=== PATIENT | female | born 1955 | race Caucasian/White ===

== ENCOUNTER 2019-12-24 11:58 | Inpatient (IN) | payer MEDICARE, MEDICAID ==
--- OUTSIDE RECORDS SUMMARY | 2019-12-24 12:17 | XMS REPORT | Continuity of Care Document ---
:1955 External Reference #:[id number] Author Name NAYELI Gonzalez Address [address] [facility] [place] [address] Care Team Providers Name Role Phone Junie Charles M.D. 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 Onset: 10/29/2013 Urinary incontinence Vineet Carson M.D. Onset: 10/29/2013 Mood disorder Vineet Carson M.D. Onset: 10/29/2013 Disorder of oral soft tissues Vineet Carson M.D. Onset: 03/08/2014 Generalized convulsive epilepsy Vineet Carson M.D. Onset: 05/20/2014 Obsessive-compulsive disorder Junie Charles M.D. Onset: 08/06/2016 Moderate intellectual disability Junie Charles M.D. Onset: 08/06/2016 Mixed hyperlipidemia Junie Charles M.D. Onset: 08/06/2016 Uncomplicated moderate persistent asthma Junie Charles M.D. Onset: 02/08/2017 Thrombocytopenic disorder Junie Charles M.D. Onset: 08/11/2017 Hyperlipidemia Junie Charles M.D. Onset: 11/20/2018 Kidney disease Junie Charles M.D. Onset: 04/05/2019 Localized, primary osteoarthritis Junie Charles M.D. Onset: 11/22/2019 Social History Type Date Description Comments Sex Unknown Tobacco Use Start: Unknown Nonsmoker Smoking Status Reviewed: 12/22/19 Nonsmoker ETOH Use Denies alcohol use Tobacco Use Start: Unknown nonsmoker Exercise Type/Frequency Bikes daily 20 min stationary most days Allergies, Adverse Reactions, Alerts Active Allergies Reaction Severity Comments Date Amoxicillin hives 09/21/2013 Nickel dry skin 09/21/2013 Brass dry skin 09/21/2013 Ocusoft Lid Scrub bruised eyes 09/21/2013 Medications Active Medications SIG Qnty Indications Ordering Date Provider Medrol take dose pack as 1units J06.9 [facility], 12/22/2019 4mg TBPK directed M.D. Azithromycin take 2 tablets 6tabs J06.9 [facility], 12/22/2019 250mg (500 mg) day 1 M.D. Tablets then 250 mg x 4 days. Ipratropium inhale 1 four 1box J06.9 [facility], 12/22/2019 [place]/Albuterol times a day as M.D. Sulfate needed for cough/shortness 0.5-2.5(3)mg/3ML of breath Solution Nebulizer Set Up And use as needed for 1Unit J06.9 [facility], 2019 Tubing shortness of M.D. breath. lifetime use for asthma diagnosis j45.901 Diclofenac Sodium apply 4 gm to 300gm M17.11 [facility], 11/22/2019 1% right knee joint M.D. Gel twice a day as needed [facility] Acetaminophen take 2 tablets by 60tabs [facility], 11/05/2019 Extra Strength mouth 3 times a M.D. 500mg day as needed Tablets Aripiprazole Take 1 Tablet By 90tabs [facility], 09/30/2019 15mg Mouth Every Day M.D. Tablets Abilify 1 by mouth every F42 Tracie Bobby, 09/28/2019 15mg Tablets day CONSULTANT INTERN [facility] Calcium Take 1 Tablet By 180tabs [facility], 08/15/2019 600mg Mouth Twice A Day M.D. Tablets [facility] Super Cranberry Take 2 Capsules 60caps Antony F. 07/13/2019 Urinary Health Every Day Antione Saab 140-100mg Capsules Divalproex Sodium Take 1 Tablet By 90tabs Antony Fitch 06/20/2019 250mg Mouth Three Times Antione Saab Tablets DR A Day [facility] D3 Take 1 Capsule By 90caps [facility], 09/29/2018 5000Unit Mouth Every Day M.D. Capsules Bed Pads use three 3units [facility], 07/27/2018 Washable washable bed pads M.D. per month dx n39.3 last office visit 11/20/18 duration:lifetime Orthopedic Shoes dispense 1 pair 1Pair F71 Antony F. 07/27/2018 Antione Saab G40.309 Oxybutynin Chloride ER Take 1 Tablet By 90tabs R32 Junie Charles, 2017 15mg Mouth Every Day M.D. Tablets ER 24HR Pull Up Under Garment size xl - duration: 250units Junie Charles, 2017 lifetime - dx: M.D. r39.81 last appt 11/20/18 Abilify 1 by mouth every 90tabs F42 Tracie Rosales, 11/23/2017 15mg Tablets day CONSULTANT INTERN Nystatin use as directed 30units B37.3 Junie Charles, 11/09/2017 [id number]/GM Cream twice a day as M.D. needed to diaper area Cetirizine HCL 1 by mouth every 90tabs J30.9 Junie [place], 08/17/2016 10mg Tablets day as needed M.D. Mometasone Furoate apply to affected 45gm Junie [place], 10/30/2015 0.1% area twice a day M.D. Ointment Ra Vitamin D-3 take 1 capsule 90caps Junie [place], 03/03/2015 5000Unit daily M.D. Capsules Cetaphil topically to hands Unknown Cream and thighs qhs Prevident 5000 Plus bid Unknown 1.1% Cream Sertraline HCL Take 1 And 1/2 Tab 135tabs Tracie Bobby, 100mg Tablets By Mouth Every Day CONSULTANT INTERN Nitrofurantoin take 1 capsule by 90caps Tracie Bobby, Macrocrystal mouth once daily CONSULTANT INTERN 50mg Capsules Ra Col-Rite 1 by mouth every 15caps Tracie Bobby, 100mg Capsules other day CONSULTANT INTERN Cranberry Plus Vitamin C take two capsules 60units Antnoy F. SFTGL once daily Antione Saab History Medications Combivent Respimat use 1 puff 4 timesa A 4units R05 Junie [place], 2018 - day for M.D. 10/11/2019 20-100mcg/Act Aerosol COPD/medication is discontinued Immunizations CPT Code Status Date Vaccine Lot # [id number] Given 08/01/2019 Influenza Vac, [place], [place] [address] Given 05/22/2019 Pneumococcal Immunization [id number] Given 08/09/2017 Influenza Vac, Quadrivalent, Slit Virus, Im [id number] Given 08/06/2016 Influenza Vac, Quadrivalent, Slit Virus, Im [id number] Given 09/13/2015 Influenza Vac, [place] [id number] Given 09/13/2015 Pneumococcal Conjugate Vacc-13 05086 Given 08/24/2014 DO Not Use Split Influenza Virus Vaccine Vital Signs Date Vital Result Comment 12/22/2019 11:02am BP Systolic 120 mmHg BP Diastolic 88 mmHg Heart Rate 90 /min Body Temperature 98.1 F Respiratory Rate 18 /min O2 % BldC Oximetry 89 % Height 61.5 inches 5'1.50" Weight 226.00 lb BMI (Body Mass Index) 42.0 kg/m2 11/22/2019 9:59am BP Systolic 120 mmHg BP Diastolic 80 mmHg Heart Rate 86 /min Body Temperature 98.1 F Respiratory Rate 18 /min Height 61.5 inches 5'1.50" Weight 231.00 lb BMI (Body Mass Index) 42.9 kg/m2 Results Test Acquired Date Facility Test Result H/L Range Note Comprehensive 11/22/2019 [facility]) Sodium 146 mEq/L 134-149 Metabolic Prof Potassium 5.0 mEq/L 3.6-5.5 Chloride 101 mEq/L 94-112 Carbon Dioxide 31 mEq/L 21-32 Glucose 90 mg/dL 70-105 BUN 34 mg/dL High 6-26 1 Creatinine 1.2 mg/dL 0.6-1.4 BUN/Creat Ratio 28.3 CALC 8.0-36.0 Calcium 10.2 mg/dL 8.6-10.2 Total Protein 6.4 g/dL 6.4-8.3 Albumin 4.1 g/dL 3.8-5.5 Globulin 2.3 g/dL 2.0-4.8 A/G Ratio 1.8 CALC 0.6-2.3 Alk. Phosphatase 49 U/L 30-110 Alt (SGPT) 6 U/L Low 7-35 2 Ast (Sgot) 12 U/L 5-34 Total Bilirubin 0.4 mg/dL 0.2-1.3 GFR Non- 48 ml/min/1.73m^ Low >=60 GFR 58 ml/min/1.73m^ Low >=60 CBC Electronic [facility] 11/22/2019 [facility]) WBC 7.5 x10^3/UL 4.0- 10.0 RBC 4.40 x10^6/UL 3.93-6.00 HGB 13.2 g/dL 12.0-17.0 HCT 41 % 35-50 MCV 93.0 fL 80.0-95.0 MCH 30.0 pg 25.6-32.2 MCHC 32.3 g/dL 32.2-36.0 RDW-CV 13.0 % 11.6-14.4 PLT 125 x10^3/UL Low 163-400 3 MPV 12.8 fL High 9.4-12.4 Chandler# 4.51 x10^3/UL 1.56-6.13 Lymph# 1.93 x10^3/UL 1.18-3.74 Dickinson# 0.76 x10^3/UL 0.24-0.82 Eos # 0.2 x10^3/UL 0.0-0.5 Baso # 0.04 x10^3/UL 0.01-0.08 Chandler% 60.4 % 34.0-70.0 Lymph % 25.8 % 20.0-52.0 Dickinson% 10.2 % 5.0-12.0 Eos% 2.4 % 0.7-7.0 Baso% 0.5 % 0.1-1.2 Laboratory test 11/22/2019 [facility]) Free T4 0.91 ng/dL 0.75- 1.54 finding TSH 1.27 mIU/L 0.50-6.00 Lipid Profile 11/22/2019 [facility]) Cholesterol 242 mg/dL High 120-200 Triglycerides 260 mg/dL High 30-200 HDL Cholesterol 61 mg/dL 30-85 LDL (Calculated) 129 CALC 0-129 VLDL Cholesterol 52 mg/dL High 0-50 HDL Risk Factor 4.0 CALC 0.0-4.4 Laboratory test 11/22/2019 [facility] Valproic Acid 52.0 g/mL Normal 50-100 4 finding (Depakene) Ict Hemoccult 07/03/2019 [facility] Ict Hemoccult 06/09/19 Neg. (Fma) (607)- - (1) Ict Hemoccult-(2) 06/11/19 Neg. Ict-Hemoccult (3) 06/13/19 Neg. 1 consistent w/ previous results 2 consistent w/ previous results 3 RESULTS VERIFIED BY REPEAT ANALYSIS 4 FASTING [id number] 1 pour off tube with serum from rtt Procedures Date Code Description Status 02/01/2019 [id number] Mammogram Completed 12/23/2017 [id number] Mammogram Completed 09/26/2015 [id number] Mammogram Completed 09/25/2014 [id number] Mammogram Completed Medical Devices Description No Information Available Encounters Type Date Location Provider Dx Diagnosis Office Visit 11/22/2019 Main Office Junie Charles M.D. F42.9 Obsessive- compulsive 10:10a disorder, unspecified G40.309 Gen idiopathic epilepsy, not intractable, w/o stat epi N18.9 Chronic kidney disease, unspecified Z00.00 Encntr for general adult medical exam w/o abnormal findings M17.11 Unilateral primary osteoarthritis, right knee E78.2 Mixed hyperlipidemia Assessments Date Code Description Provider 12/22/2019 J06.9 Acute upper respiratory infection, unspecified Neris Olsen, NAYELI 11/22/2019 F42.9 Obsessive-compulsive disorder, unspecified Junie Charles M.D. 11/22/2019 G40.309 Generalized idiopathic epilepsy and epileptic Junie Charles M.D. syndromes, not intractable, without status epilepticus 11/22/2019 N18.9 Chronic kidney disease, unspecified Junie Charles M.D. 11/22/2019 Z00.00 Encounter for general adult medical examination Junie Charles M.D. without abnormal findings 11/22/2019 M17.11 Unilateral primary osteoarthritis, right knee Junie Charles M.D. 11/22/2019 E78.2 Mixed hyperlipidemia Junie Charles M.D. 07/03/2019 N18.9 Chronic kidney disease, unspecified Junie Charles M.D. 07/03/2019 R19.7 Diarrhea, unspecified Junie Charles M.D. Plan of Treatment Future Appointment(s):12/24/2019 10:30 am - Lorena Soto NP at Main Gmkqvy4005/22/2020 10:00 am - Junie Charles M.D. at Main Kvtmiv1712/22/2019 - Neris Olsen, PAJ06.9 Acute upper respiratory infection, unspecifiedNew Medication: Medrol 4 mg - take dose pack as directedAzithromycin 250 mg - take 2 tablets ( 500 mg) day 1 then 250 mg x 4 days.Ipratropium [place]/Albuterol Sulfate 0.5-2.5 (3) mg/3ML - inhale 1 four times a day as needed for cough/shortness of breathNebulizer Set Up And Tubing - use as needed for shortness of breath. lifetime use for asthma diagnosis j45.901New Xrays:Chest 2 Views, Ordered: 12/22Comments:Start steroid to help inflammation in the lungs Start antibiotic - AzithromycinStart nebulizer (4-6x/ day) or use Combivent inhaler- can get vials at the pharmacy and nebulizer through insurance at [employer] or can purchase at the pharmacy Check Chest X Ray See early next week to be sure feeling better ER for any trouble breathingAllComments:PCMHMedication Management Patient Understands medications he's taking? Yes Are there Barriers to Adherence? No Has the patient been asked about herbal supplements and therapies, and OTC meds? Yes Care Plan1. Patient has been queried about patient's goals/preferences and functional/lifestyle goals at relevant visits. Yes If relevant, describe: N/A2. Treatment goals as explained to the patient: above3. Are there barriers to meeting treatment goals ? No If Yes, please describe:4. Self-Management goals as described to the patient: Yes As always, we strongly encourage a healthy diet and making physical activity a part of your every day life. If you have questions about how or where to start, please contact the office. Functional Status Description No Information Available Mental Status Description No Information Available Referrals Description No Information Available
--- OUTSIDE RECORDS SUMMARY | 2019-12-24 12:17 | XMS REPORT | Continuity of Care Document ---
:1955 External Reference #:[id number] Author Name Junie Charles M.D. Address [address] [place] [address] Care Team Providers Name Role Phone Junie Charles M.D. 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 Problems Active Problems Provider Date Mental [...] Use Start: Unknown Nonsmoker Smoking Status Reviewed: 11/22/19 Nonsmoker ETOH Use Denies alcohol use Tobacco Use Start: Unknown nonsmoker Exercise Type/Frequency Bikes daily 20 min stationary most days Allergies, Adverse Reactions, Alerts Active Allergies Reaction Severity Comments Date Amoxicillin hives 09/21/2013 Nickel dry skin 09/21/2013 Brass dry skin 09/21/2013 Ocusoft Lid Scrub bruised eyes 09/21/2013 Medications Active Medications SIG Qnty Indications Ordering Date Provider Diclofenac Sodium apply 4 gm to 300gm M17.11 Junie Charles, 11/22/2019 1% Gel right knee joint M.D. twice a day as needed [facility] Acetaminophen take 2 tablets 60tabs Junie [place], 11/05/2019 Extra Strength by mouth 3 times M.D. 500mg a day as needed Tablets Aripiprazole Take 1 Tablet By 90tabs Junie Charles, 09/30/2019 15mg Tablets Mouth Every Day M.D. Abilify 1 by mouth every F42 Tracie Rosales, 09/28/2019 15mg Tablets day PLUG PASTER [facility] Calcium Take 1 Tablet By 180tabs Junie [place], 08/15/2019 600mg Tablets Mouth Twice A M.D. Day [facility] Super Cranberry Take 2 Capsules 60caps Antony F. 07/13/2019 Urinary Health Every Day Antione Saab 140-100mg Capsules Divalproex Sodium Take 1 Tablet By 90tabs Antonyrubina Fitch 06/20/2019 250mg Mouth Three Antione Saab Tablets DR Times A Day [facility] D3 Take 1 Capsule 90caps Junie Charles, 09/29/2018 5000Unit Capsules By Mouth Every M.D. Day Bed Pads use three 3units Junie Charles, 07/27/2018 Washable washable bed Antione pads per month dx n39.3 last office visit 11/20/18 duration:lifetim e Orthopedic Shoes dispense 1 pair 1Pair F71 Antony FRadha 07/27/2018 Antione Saab G40.309 Oxybutynin Chloride ER Take 1 Tablet By 90tabs R32 Junie Charles, 2017 15mg Mouth Every Day M.DRadha Tablets ER 24HR Pull Up Under Garment size xl - duration: 250units Junie Charles, 2017 lifetime - dx: ChuckDRadha r39.81 last appt 11/20/18 Abilify 1 by mouth every 90tabs F42 Tracie Rosales, 11/23/2017 15mg Tablets day PLUG PASTER Nystatin use as directed 30units B37.3 Junie Charles, 11/09/2017 [id number]/GM Cream twice a day as M.D. needed to diaper area Cetirizine HCL 1 by mouth every 90tabs J30.9 Junie Charles, 08/17/2016 10mg Tablets day as needed M.D. Mometasone Furoate apply to affected 45gm Junie Charles, 10/30/2015 0.1% area twice a day M.D. Ointment Ra Vitamin D-3 take 1 capsule 90caps Junie Charles, 03/03/2015 5000Unit daily M.D. Capsules Cetaphil topically to hands Unknown Cream and thighs qhs Prevident 5000 Plus bid Unknown 1.1% Cream Sertraline HCL Take 1 And 1/2 Tab 135tabs Tracie Bobby, 100mg Tablets By Mouth Every Day PLUG PASTER Nitrofurantoin take 1 capsule by 90caps Tracie Bobby, Macrocrystal mouth once daily PLUG PASTER 50mg Capsules Ra Col-Rite 1 by mouth every 15caps Tracie Bobby, 100mg Capsules other day PLUG PASTER Cranberry Plus Vitamin C take two capsules 60units Antony F. SFTGL once daily Antione Saab History Medications Combivent Respimat use 1 puff 4 timesa A 4units R05 Junie Charles, 2018 - day for M.D. 10/11/2019 20-100mcg/Act Aerosol COPD/medication is discontinued Immunizations CPT Code Status Date Vaccine Lot # 73739 Given 08/01/2019 Influenza Vac, [place], [place] [id number] Given 05/22/2019 Pneumococcal Immunization [id number] Given 08/09/2017 Influenza Vac, Quadrivalent, Slit Virus, Im [id number] Given 08/06/2016 Influenza Vac, Quadrivalent, Slit Virus, Im [id number] Given 09/13/2015 Influenza Vac, [place]riv[place], [place] [id number] Given 09/13/2015 Pneumococcal Conjugate Vacc-13 34414 Given 08/24/2014 DO Not Use Split Influenza Virus Vaccine Vital Signs Date Vital Result Comment 11/22/2019 9:59am BP Systolic 120 mmHg BP Diastolic 80 mmHg Heart Rate 86 /min Body Temperature 98.1 F Respiratory Rate 18 /min Height 61.5 inches 5'1.50" Weight 231.00 lb BMI (Body Mass Index) 42.9 kg/m2 06/15/2019 1:36pm BP Systolic 124 mmHg BP Diastolic 80 mmHg Heart Rate 86 /min Body Temperature 98.1 F Respiratory Rate 17 /min Height 61.5 inches 5'1.50" Weight 224.00 lb BMI (Body Mass Index) 41.6 kg/m2 Results Test Acquired Date Facility Test Result H/L Range Note Laboratory test 11/22/2019 [facility]) Free T4 <pending> 0.75- 1.54 finding TSH <pending> 0.5-5.0 Laboratory test 11/22/2019 [facility] Valproic Acid <pending> finding (Depakene) Ict Hemoccult ([facility]) 07/03/2019 [facility] Ict Hemoccult (1) 06/09/19 Neg. (607)- - Ict Hemoccult-(2) 06/11/19 Neg. Ict-Hemoccult (3) 06/13/19 Neg. Procedures Date Code Description Status 02/01/2019 [id number] Mammogram Completed 12/23/2017 [id number] Mammogram Completed 09/26/2015 [id number] Mammogram Completed 09/25/2014 [id number] Mammogram Completed Medical Devices Description No Information Available Encounters Type Date Location Provider Dx Diagnosis Office Visit 06/15/2019 Main Office ALEXANDRA Wooten R22.41 Localized swelling, 1:30p mass and lump, right lower limb Assessments Date Code Description Provider 11/22/2019 F42.9 Obsessive-compulsive disorder, unspecified Junie Charles M.D. 11/22/2019 G40.309 Generalized idiopathic epilepsy and epileptic Junie Charles M.D. syndromes, not intractable, without status epilepticus 11/22/2019 N18.9 Chronic kidney disease, unspecified Junie Charles M.D. 11/22/2019 Z00.00 Encounter for general adult medical examination Junie Charles M.D. without abnormal findings 11/22/2019 M17.11 Unilateral primary osteoarthritis, right knee Junie Charles M.D. 07/03/2019 N18.9 Chronic kidney disease, unspecified Junie Charles M.D. 07/03/2019 R19.7 Diarrhea, unspecified Junie Charles M.D. 06/15/2019 R22.41 Localized swelling, mass and lump, right lower Tracie Rosales, PLUG PASTER limb Plan of Treatment 11/22/2019 - Junie Charles M.D.F42.9 Obsessive-compulsive disorder, unspecifiedComments:stable on regimenFollow up:6moG40.309 Generalized idiopathic epilepsy and epileptic syndromes, not intractable, without status epilepticusComments:stable on vbtxuzkP44.9 Chronic kidney disease, unspecifiedComments:avoid NSAIDS by mouth to minimize kidney kzzldmkY87.00 Encounter for general adult medical examination without abnormal findingsComments:Encourage an active and healthy lifestyle with proper eating habits including fruits, vegetables, 6-8 glasses of water a day and monitoring portion size. Recommend 30 minutes of daily physical activityincluding walking, aerobic exercise, sports, yoga or dance. Any activity is better than no activity.Recommend routine eye and dental exams. Next physical is due in 1-2 years. Recommend annual influenza yftjlbjmkizO54.11 Unilateral primary osteoarthritis, right kneeNew Medication:Diclofenac Sodium 1 % - apply 4 gm to right knee joint twice a day as neededComments:Can use heat or ice on area 15 minutes on/off. Use diclofenac gel 2x a day as needed, and acetaminophen 3x a day. Stretching exercises are recommended twice a day. Call if symptoms are worseningAllComments:Medication Management Patient Understands medications she' s taking? Yes No Are there Barriers to Adherence? Yes No Has the patient been asked about herbal supplements and therapies, and OTC meds? Yes No Functional Status Description No Information Available Mental Status Description No Information Available Referrals Description No Information Available
--- NOTE | 2019-12-24 13:17 | ED ---
Respiratory - HPI Summary HPI Summary: The patient is a 64 y/o F presenting to [facility] accompanied by family with a cc of hypoxia today. She visited her PCPs office on 12/22/2019 for a few days of URI-like symptoms and was placed on Prednisone and Azithromycin. At bedtime that night, she was observed to have an O2 sat of 89% on RA. Today, she was seen by the FLOUR BROKER at her PCPs office for a follow-up, and she was 74-78% O2 on RA and was administered a nebulizer treatment with recommendation to come to the ED. She denies lower extremity edema, fever, or worsening cough. She does not feel short of breath and has not had observable labored breathing or wheezing. Patient 93% O2 sat on 4L in the room. PMHx: epilepsy, HTN. Nonsmoker, no EtOH, no substance use. Medications reviewed. Allergies noted. - History of Current Complaint Chief Complaint: EDUpperRespComplaint Stated Complaint: LOW OXYGEN SATURATION PER CAREGIVER Time Seen by Provider: 12/24/19 12:57 Hx Obtained From: Patient, Family/[employer] Secretary Onset/Duration: Gradual Onset, Lasting Days, Still Present Initial Severity: Moderate Current Severity: Moderate Pain Intensity: 0 Sputum Amount: None Aggravating Factor(s): URI Alleviating Factor(s): Neb. Bronchodilators (Frequency Of Use) Associated Signs and Symptoms: Negative - Allergy/Home Medications Allergies/Adverse Reactions: Allergies Allergy/AdvReac Type Severity Reaction Status Date / Time amoxicillin Allergy Rash Verified 12/24/19 12:03 Home Medications: Home Medications Calcium Carbonate [Calcium] 600 mg PO BID 12/24/19 [History Confirmed 12/24/19] Cetirizine* [ZyrTEC 10 MG TAB*] 10 mg PO DAILY 12/24/19 [History Confirmed 12/24] Cranberry 400 mg PO BID 12/24/19 [History Confirmed 12/24/19] Divalproex DR TAB(*) [Depakote DR TAB(*)] 150 mg PO TID 12/24/19 [History Confirmed 12/24/19] Erythromycin OPTH OINT* [Erythromycin 0.5% OPTH OINT*] 1 applic BOTH EYES BEDTIME 12/24/19 [History Confirmed 12/24/19] Nitrofurantoin Macrocrystal [Nitrofurantoin Macrocryst] 50 mg PO DAILY 12/24/19 [History Confirmed 12/24/19] Oxybutynin TAB* [Ditropan TAB*] 15 mg PO DAILY 12/24/19 [History Confirmed 12/24] Pazeo 0.7% Opthalmic Soln 1 drop BOTH EYES QAM 12/24/19 [History Confirmed 12/24] Sertraline* [Zoloft*] 150 mg PO DAILY 12/24/19 [History Confirmed 12/24/19] PMH/Surg Hx/FS Hx/Imm Hx Endocrine/Hematology History: Denies: Hx Diabetes Cardiovascular History: Reports: Hx Hypertension Sensory History: Reports: Hx Contacts or Glasses Opthamlomology History: Reports: Hx Contacts or Glasses Neurological History: Reports: Hx Seizures - Cancer History Hx Chemotherapy: No Hx Radiation Therapy: No - Surgical History Surgical History: Yes Surgery Procedure, Year, and Place: HYSTERECTOMY Infectious Disease History: No Infectious Disease History: Denies: Traveled Outside the [place] in Last 30 Days - Family History Known Family History: Negative: Blood Disorder - Social History Alcohol Use: None Hx Substance Use: No Substance Use Type: Reports: None Hx Tobacco Use: No Smoking Status (MU): Never Smoked Tobacco Review of Systems Negative: Fever Positive: Other - hypoxic. Negative: Shortness Of Breath - no observable wheezing, labored breathing, Cough Negative: Edema All Other Systems Reviewed And Are Negative: Yes Physical Exam - Summary Physical Exam Summary: Constitutional: Well-developed, Well-nourished, Alert. (-) Distressed Skin: Warm, Dry HENT: Normocephalic; Atraumatic Eyes: Conjunctiva normal Neck: Musculoskeletal ROM normal neck. (-) JVD, (-) Stridor, (-) Nuchal rigidity Cardio: Rhythm regular, rate normal, Heart sounds normal; Intact distal pulses; Radial pulses are 2+ and symmetric. (-) Murmur Pulmonary/Chest wall: Tachypnea, (+) Bilateral crackles, (-) Respiratory distress, (-) Wheezes, (-) Rales Abd: Soft, (-) tenderness, (-) Distension, (-) Guarding, (-) Rebound Musculoskeletal: (-) Edema Lymph: (-) Cervical adenopathy Neuro: Alert, Oriented x3 Psych: Mood and affect Normal Triage Information Reviewed: Yes Vital Signs On Initial Exam: Initial Vitals Temp Pulse Resp BP Pulse Ox 97.7 F 108 19 141/105 88 12/24/19 12:00 12/24/19 12:00 12/24/19 12:00 12/24/19 12:00 12/24/19 12:00 Vital Signs Reviewed: Yes Procedures - Sedation Patient Received Moderate/Deep Sedation with Procedure: No Diagnostics - Vital Signs Vital Signs Temp Pulse Resp BP Pulse Ox 12/24/19 12:35 97 22 90 12/24/19 12:00 97.7 F 108 19 141/105 88 - Laboratory Result Diagrams: 12/24/19 13:32 12/24/19 12:45 Lab Statement: Any lab studies that have been ordered have been reviewed, and results considered in the medical decision making process. - Radiology CXR Radiology Interpretation Completed By: Radiologist Summary of Radiographic Findings: Impression: Perihilar predominant airspace opacification with cardiomegaly. This is most suggestive of mild pulmonary edema. ED physician has reviewed this report. - EKG 1335 Cardiac Rate: NL - 99 BPM EKG Rhythm: Sinus Rhythm EKG Comparison: Other - no prior for comparison Summary of EKG Findings: An EKG at 1335 reveals normal sinus rhythm at rate of 99 BPM. RBBB. No STEMI. No prior for comparison. ED physician has reviewed and interpreted this EKG. Re-Evaluation - Re-Evaluation First Eval Re-Evaluation Time: 14:30 Comment: Discussed results and plan for admission, patient and family agreeable with plan Disposition - Course Course Of Treatment: 64 y/o F w hx developmental delay p/w URI like symptoms found to be hypoxic. - VS notable for room air sat 74%, placed on 4 L NC. - XR w pulm edema, BNP 100, trop neg. EKG w/o e/o acute ischemia. - CTA chest w pulm edema. Admit to hospitalist. - Diagnoses Provider Diagnoses: Pulmonary edema, Hypoxia, SOB (shortness of breath) - Physician Notifications Discussed Care Of Patient With: Jayy Greenwood - hospitalist Time Discussed With Above Provider: 14:25 Instructed by Provider To: Other - I discussed the patients case with Dr. Greenwood , who accepts the patient for admission pending Chest/Thorax CTA. Discharge ED - Sign-Out/Discharge Documenting (check all that apply): Patient Departure - Patient accepted for admission by Dr. Greenwood. - Discharge Plan Condition: Stable Disposition: ADMITTED TO [facility] - Billing Disposition and Condition Condition: STABLE Disposition: Admitted to [facility] - Attestation Statements Document Initiated by Estuardo: Yes Documenting Scribe: Amna Reyes Provider For Whom Estuardo is Documenting (Include Credential): Dr. Benjamin Haley MD Scribe Attestation: IAmna scribed for Dr. Benjamin Haley MD on 12/24/19 at 1939. Scribe Documentation Reviewed: Yes Provider Attestation: The documentation as recorded by the Amna garcia accurately reflects the service I personally performed and the decisions made by me, Dr. Benjamin Haley MD Status of Scribe Document: Viewed
[2019-12-24 13:22] LABS: Albumin 4.1 g/dL (3.2-5.2); Potassium 4.5 mmol/L (3.5-5.0); Total Bilirubin 0.3 mg/dL (0.2-1.0)
[2019-12-24 13:28] LABS: Albumin/Globulin Ratio 1.5 (1-3); BUN/Creatinine Ratio 27.5 (8-20); EGFR African American 46.3 (>60); EGFR Non-African American 38.3 (>60); Globulin 2.8 g/dL (2-4); Total Protein 6.9 g/dL (6.4-8.9)
[2019-12-24 13:46] LABS: Hematocrit 39 % (35-47); Hemoglobin 12.6 g/dL (12.0-16.0); Mean Corpuscular HGB Conc 33 g/dL (31-36); Mean Corpuscular Hemoglobin 30 pg (27-31); Mean Corpuscular Volume 90 fL (80-97); Mean Platelet Volume 9.3 fL (7.4-10.4); Platelet Count 180 10^3/uL (150-450); Red Blood Count 4.28 10^6 /uL (3.70-4.87); Red Cell Distribution Width 14 % (10-15); White Blood Count 11.1 10^3/uL (3.5-10.8)
[2019-12-24] MEDS ORDERED: Iodixanol* (CONTRAST) 320 MG/ML 100 ML SDV IV ONE (14:46)
[2019-12-24 15:17] LABS: ABS Basophils 0.1 10^3/ul (0-0.2); ABS Eosinophils 0.1 10^3/ul (0-0.6); ABS Lymphocytes 2.7 10^3/ul (1.0-4.8); ABS Monocytes 0.8 10^3/ul (0-0.8); ABS Neutrophils 7.5 10^3/ul (1.5-7.7); Eosinophil % 0.6 %; Lymphocyte % 24.1 %
[2019-12-24] MEDS: DOXYcycline IV* 100 MG in NS 0.9% 250 ML* 250 ML IVPB SCH (18:09)
[2019-12-24] MEDS: cefTRIAXone(*) 1 GM in NS 0.9% 50 ML* 50 ML IVPB SCH (18:09)
[2019-12-24] MEDS: Enoxaparin(*) 40 MG/0.4 ML SYR SUBCUT SCH (18:14)
[2019-12-24 19:10] LABS: Influenza A Molecular Negative (Negative); Influenza B Molecular Negative (Negative)
[2019-12-24] MEDS: Divalproex DR TAB(*) 250 MG PO SCH (22:28)
[2019-12-24] MEDS: Erythromycin OPTH OINT* APPLIC OINT BOTH EYES SCH (22:29)
[2019-12-25 06:56] LABS: Hematocrit 37 % (35-47); Hemoglobin 12.1 g/dL (12.0-16.0); Mean Corpuscular HGB Conc 33 g/dL (31-36); Mean Corpuscular Hemoglobin 31 pg (27-31); Mean Corpuscular Volume 93 fL (80-97); Mean Platelet Volume 8.8 fL (7.4-10.4); Platelet Count 140 10^3/uL (150-450); Red Blood Count 3.97 10^6 /uL (3.70-4.87); Red Cell Distribution Width 14 % (10-15); White Blood Count 8.7 10^3/uL (3.5-10.8)
[2019-12-25 07:01] LABS: Calcium 9.2 mg/dL (8.6-10.3); Potassium 4.9 mmol/L (3.5-5.0)
[2019-12-25 07:07] LABS: BUN/Creatinine Ratio 28.7 (8-20); C Reactive Protein 12.07 mg/L (<8.01); EGFR African American 53.4 (>60); EGFR Non-African American 44.1 (>60)
[2019-12-25] MEDS: DOXYcycline IV* 100 MG in NS 0.9% 250 ML* 250 ML IVPB SCH ×2 (07:07→18:11)
[2019-12-25 08:58] LABS: ABS Eosinophils 0.1 10^3/ul (0-0.6); ABS Monocytes 0.9 10^3/ul (0-0.8); ABS Neutrophils 5.6 10^3/ul (1.5-7.7); Eosinophil % 1.6 %; Lymphocyte % 22.7 %; Nucleated Red Blood Cells % 0.1
[2019-12-25] MEDS: Divalproex DR TAB(*) 250 MG PO SCH ×3 (10:13→22:26)
[2019-12-25] MEDS: Oxybutynin XL TAB* 5 MG PO SCH (10:13)
[2019-12-25] MEDS: Sertraline* 50 MG TAB PO SCH (10:14)
[2019-12-25] MEDS: OLOPATADINE 0.7% BOTH EYES SCH (10:19)
--- NOTE | 2019-12-25 10:33 | PN ---
Subjective Date of Service: 12/25/19 Interval History: Patient overall has no complaints. She has a productive cough and she tells me she brings up phlegm at times. She states, "I hope I don't need surgery" and she is reassured. She tells me her breathing feels a little better than yesterday. She denies chest pain, abd pain, fever/chills. Her primary customer care representative, her sister, tells me the productive cough started 12/21/19, but several days before this she had "cold like symptoms" of runny nose and very intermittent cough. She went to PCP over the weekend and nebulizers did not help, and was directed to the ED. Objective Active Medications: Divalproex Sodium (Depakote Dr Tab(*)) 250 mg PO TID [facility] Last Admin: 12/25/19 10:13 Dose: 250 mg Enoxaparin Sodium (Lovenox(*)) 40 mg SUBCUT Q24H [facility] Last Admin: 12/24/19 18:14 Dose: 40 mg Erythromycin (Erythromycin Opth Oint*) 1 applic BOTH EYES BEDTIME [facility] Last Admin: 12/24/19 22:29 Dose: 1 applic Doxycycline Hyclate 100 mg/ (Sodium Chloride) 250 mls @ 250 mls/hr IVPB Q12H [facility] Last Admin: 12/25/19 07:07 Dose: 250 mls/hr Ceftriaxone Sodium 1 gm/ (Sodium Chloride) 50 mls @ 100 mls/hr IVPB Q24H [facility] Last Admin: 12/24/19 18:09 Dose: 100 mls/hr Non-Formulary Medication (Pazeo 0.7% Opthalmic Soln) 1 drop BOTH EYES QAM [facility] Last Admin: 12/25/19 10:19 Dose: Not Given Oxybutynin Chloride (Ditropan Xl Tab*) 15 mg PO DAILY [facility] Last Admin: 12/25/19 10:13 Dose: 15 mg Sertraline HCl (Zoloft*) 150 mg PO DAILY [facility] Last Admin: 12/25/19 10:14 Dose: 150 mg Vital Signs - 8 hr 12/25/19 12/25/19 03:23 07:34 Temperature 97.9 F 97.8 F Pulse Rate 85 88 Respiratory 20 24 Rate Blood Pressure 149/84 145/76 (mmHg) O2 Sat by Pulse 92 91 Oximetry Oxygen Devices in Use Now: Nasal Cannula Appearance: Elderly white female, sitting upright in chair, appearing comfortable and in NAD Eyes: No Scleral Icterus, - - PERRL Ears/Nose/Mouth/Throat: Mucous Membranes Moist Neck: Trachea Midline Respiratory: Symmetrical Chest Expansion and Respiratory Effort, - - poor depth of respirations due to patient effort it seems; crackles in bilateral bases; scant rhonchi diffusely anteriorly which sounds consistent with upper airway secretions Cardiovascular: NL Sounds; No Murmurs; No JVD, RRR Abdominal: - - abd soft, nontender, nondistended Extremities: No Edema, No Clubbing, Cyanosis Skin: No Rash or Ulcers Neurological: Alert and Oriented x 3 Result Diagrams: 12/25/19 06:43 12/25/19 06:43 Assess/Plan/Problems-Billing Assessment: 64 yo white female with PMHx intellectual delay, cardiomegaly, ?seizure disorder , overactive bladder, anxiety/depression presents with shortness of breath. - Patient Problems (1) Acute respiratory failure with hypoxia Current Visit: Yes Status: Acute Code(s): J96.01 - ACUTE RESPIRATORY FAILURE WITH HYPOXIA SNOMED Code(s): 85441596 Comment: -etiology unclear at this time, but my leading differential dx is pneumonia considering the presenting clinical picture of leukocytosis and URI sxs leading up to presentation -with the CXR demonstrating some concerning features of pulmonary edema, I do have concern for possible underlying HF, additionally given hx of cardiomegaly -echo demonstrates diastolic HF but I would be hesitant to diurese at this time as patient is more likely dry in setting of infection -continue empiric abx: doxy and ceftriaxone -leukocytosis is resolved; patient is afebrile -on 4L oxygen, will wean as tolerated -if not improving after 48 hrs IV abx then should consider diuresis (2) Frequent PVCs Current Visit: Yes Status: Acute Code(s): I49.3 - VENTRICULAR PREMATURE DEPOLARIZATION SNOMED Code(s): 30397728 Comment: -frequent long runs of PVCs, with runs as long as 8 beats to 20 beats -not Vtach as patient is not tachycardic during these runs, rates in 90s -K is >4, Mg is low - replacing -patient asymtompatic during these runs, but patient is poor historian due to intellectual delay -continue tele (3) Overactive bladder Current Visit: Yes Status: Acute Code(s): N32.81 - OVERACTIVE BLADDER SNOMED Code(s): 043965050 Comment: -continue oxybutynin (4) Anxiety and depression Current Visit: Yes Status: Acute Code(s): F41.9 - ANXIETY DISORDER, UNSPECIFIED; F32.9 - MAJOR DEPRESSIVE DISORDER, SINGLE EPISODE, UNSPECIFIED SNOMED Code(s): 007865589 Comment: -continue zoloft (5) Intellectual delay Current Visit: Yes Status: Acute Code(s): F81.9 - DEVELOPMENTAL DISORDER OF SCHOLASTIC SKILLS, UNSPECIFIED SNOMED Code(s): 798494492 Comment: -supportive care -appears patient takes depakote as a mood stabilizer as there is no documentation of seizure d/o (6) DVT prophylaxis Current Visit: Yes Status: Acute Code(s): Z29.9 - ENCOUNTER FOR PROPHYLACTIC MEASURES, UNSPECIFIED SNOMED Code(s): 048916027 Comment: -lovenox (7) Full code status Current Visit: Yes Status: Acute Code(s): Z78.9 - OTHER SPECIFIED HEALTH STATUS SNOMED Code(s): 548868544 Status and Disposition: pending further improvement
--- NOTE | 2019-12-25 10:47 | HP ---
CC: Dr. Junie Charles ADMISSION HISTORY AND PHYSICAL: DATE OF ADMISSION: 12/24/19 CHIEF COMPLAINT: Hypoxia. HISTORY OF PRESENT ILLNESS: Ms. Garcia is a 64-year-old woman with history of intellectual develop mental delay, who came to her primary care office approximately 24 hours prior to admission. Apparen tly, some respiratory complaints were noted and she had oxygen sat level that read 89%. She was sent home with prednisone and azithromycin and had a 24-hour recheck planned. When she came back to the office today she had an oxygen saturation 74% and was referred to the emergency department. The david ent is a poor historian due to her baseline mental status. She denies any cough or dyspnea. She steve es any history of heart failure or peripheral edema. The patient lives with her family for the last 10 plus years. PAST MEDICAL HISTORY: Include hypertension, epilepsy and a history of an "enlarged heart," overactiv e bladder. PAST SURGICAL HISTORY: Hysterectomy. MEDICATIONS ON ADMISSION: 1. Calcium carbonate 100 mg p.o. b.i.d. 2. Cetirizine 10 mg p.o. daily. 3. Cranberry extract 400 mg p.o. b.i.d. 4. Divalproex DR tablet 250 mg p.o. t.i.d. 5. Erythromycin ointment topically to both eyes at bedtime. 6. Nitrofurantoin 50 mg p.o. daily. 7. Oxybutynin XL 50 mg p.o. daily. 8. Pazeo 0.7% ophthalmic solution 1 drop both eyes q.a.m. 9. Sertraline 150 mg p.o. q. a.m. ALLERGIES: AMOXICILLIN. FAMILY HISTORY: Mother and father are , unknown causes. Siblings are healthy. SOCIAL HISTORY: She is disabled. She is not . She has no children. Her sister is her healt hcare proxy and her name is Yudith, her phone number is . She is her healthcare proxy. She never smoked. No alcohol or drug use. REVIEW OF SYSTEMS: The patient is a poor historian. Denies all symptoms. PHYSICAL EXAMINATION GENERAL: She is in no respiratory distress. VITAL SIGNS: Temperature is 36.5, pulse 99 to 101, respirations 25, blood pressure 124/82, oxygen sa turation is 88% to 91% on 4 L. HEENT: Head is normocephalic atraumatic. Sclerae anicteric. Pupils are equal, round and reactive t o light and accommodation. Oropharynx is moist. There was poor dentition. NECK: No JVD. No carotid bruit. No thyromegaly. LUNGS: Clear to auscultation and percussion bilaterally. HEART: Regular rate and rhythm without murmurs or gallops. ABDOMEN: Soft, nontender. Positive bowel sounds. No hepatosplenomegaly. EXTREMITIES: No peripheral edema. Dorsalis pedis pulses are 1+ bilaterally. NEUROLOGIC: Cranial nerves II through XII were intact. She is moving all 4 extremities with equal p ower. Deep tendon reflexes are absent throughout. She is alert. She is oriented to self. She is p leasant and interactive. DIAGNOSTIC STUDIES/LAB DATA: Sodium 141, potassium 4.5, chloride 102, bicarb 32, BUN 38, creatinine 1.38, glucose is 94, calcium 11.0. Troponin 0.01. BNP 110. White count 11.1, hemoglobin 12.6, jonnathan tocrit 39%, platelets are 188. Influenza A and B is negative. Chest x-ray shows perihilar airspace opacification with cardiomegaly suggestive of mild pulmonary ernie ma. CTA of the chest shows no pulmonary emboli, but there was excessive motion artifact. There was i nterstitial edema noticed on CT as well. EKG shows normal chest rhythm. Normal axis. No ischemic ST or T-wave changes. There is right bundle branch block and a left posterior fascicular block. ASSESSMENT AND PLAN: A 64-year-old woman presenting with hypoxia and minimal symptoms. Differential would include interstitial viral pneumonia, asthma, congestive heart failure. There is also a possi bility of nitrofurantoin induced lung disease. The patient will be admitted to the hospital for supp lemental oxygen and we will treat her for possible infectious bacterial pneumonia with ceftriaxone an d doxycycline. She can have a nasal swab for flu to rule out viral illness. Of course, we are holdi ng her nitrofurantoin and can reassess her lung condition tomorrow. The heart failure is high in the differential even though her BNP is only minimally elevated. She wi ll have echocardiogram tomorrow given the appearance of the heart on chest x-ray and her symptoms. Her creatinine is elevated, I do not have any baseline numbers to compare this with. She may have so me acute kidney injury due to low cardiac output or dehydration. She seems to be eating and drinking well, so we will just recheck this in the morning. Code status is full. DVT prophylaxis will be with subcutaneous Lovenox. [id number]/[facility] #: [id number]
[2019-12-25] MEDS ORDERED: Perflutren Lipid Microsphere* 3 ML VIAL ONE (10:54)
--- NOTE | 2019-12-25 12:19 | ECHO ---
*[facility]* [place] [address] Fax #: [phone] Transthoracic Echocardiogram Patient: Mirian Garcia : 1955 Study Date: 12/25/2019 Age: 64 Gender: F HR: 99 bpm Height: 65 in /165.1 cm BSA: 2.1 m^2 Weight: 229.5 lb /104.3 kg BMI: 38.3 kg/m^2 *Bank Courier: * Christy Sam [facility] *Referring Physician: * Jayy Greenwood *Reading Physician: * Isaac Oh MD Indications: Congestive Heart Failure. History: Developmental Delay. Epilepsy. Risk factors: Hypertension. Conclusions Summary: - Left ventricle: The cavity size is below normal. Wall thickness is mildly to moderately increased. Systolic function is hyperdynamic. The estimated ejection fraction is 70-75%. Although no diagnostic regional wall motion abnormality is identified, this possibility cannot be completely excluded on the basis of this study. - Right ventricle: Systolic function is low normal. - Mitral valve: There is trace regurgitation. - Aortic valve: There is no evidence of stenosis. - Tricuspid valve: There is trace regurgitation. - Pulmonary arteries: Systolic pressure can not be accurately estimated. - Study data: No prior study is available for comparison. Study data: Transthoracic echocardiogram. Procedure: Transthoracic echocardiography was performed. Image quality was suboptimal. The study was technically limited due to poor patient compliance. Intravenous Definity , 5 mlswas administered. Complete 2D, spectral Doppler, and color flow Doppler. Location: Bedside. Patient status: Inpatient. Patient room number: 406. No prior study is available for comparison. Rhythm: Normal sinus rhythm. Findings Left ventricle: Poorly visualized. The cavity size is below normal. Wall thickness is mildly to moderately increased. Systolic function is hyperdynamic. The estimated ejection fraction is 70-75%. Although no diagnostic regional wall motion abnormality is identified, this possibility cannot be completely excluded on the basis of this study. Doppler parameters are consistent with abnormal left ventricular relaxation (grade 1 diastolic dysfunction). Right ventricle: Poorly visualized. The cavity size is at the upper limits of normal. Systolic function is low normal. Left atrium: Poorly visualized. The atrium is at the upper limits of normal in size. Right atrium: Poorly visualized. The atrium is at the upper limits of normal in size. Mitral valve: The leaflets are mildly thickened. There is no evidence of stenosis. There is trace regurgitation. Aortic valve: Not well visualized. The valve is trileaflet. The leaflets are mildly thickened. There is no evidence of stenosis. There is no significant regurgitation. Tricuspid valve: The leaflets are normal thickness. There is no evidence of stenosis. There is trace regurgitation. Pulmonic valve: Poorly visualized. There is no evidence of stenosis. There is trace regurgitation. Aorta: Aortic root: The aortic root is appears normal. Ascending aorta: The ascending aorta is appears normal. Aortic arch: The aortic arch is appears normal. Pericardium: A prominent pericardial fat pad is present. There is no significant pericardial effusion. Pulmonary arteries: The main pulmonary artery is normal-sized. Systolic pressure can not be accurately estimated. Systemic veins: Inferior vena cava: The vessel is normal in size. There is (>= 50%) respiratory change in the IVC dimension. Measurements Left ventricle Value Ref Aortic valve Value Ref MISA, LAX (L) 3.1 cm 3.8 - 5.2 Xuan diam, ED 1.9 cm ---- ESD, LAX (L) 1.7 cm 2.2 - 3.5 Xuan diam/bsa, ED 0.9 cm/m^2 ---- FS, LAX 45 % 27 - 45 Peak v, S 1.41 m/sec ---- PW, ED, LAX (H) 1.4 cm 0.6 - 0.9 VTI, S 24.9 cm ---- FS 45 % 27 - 45 Mean grad, S 4.0 mm Hg ---- PW, ED (H) 1.4 cm 0.6 - 0.9 Peak grad, S 8.0 mm Hg ---- E', lat xuan, TDI (L) 5.9 cm/sec >=10.0 LVOT/AV, VTI ratio 0.72 - --- E/e', lat xuan, 10 TDI Mitral valve Value Ref E', med xuan, TDI (L) 5.3 cm/sec >=7.0 Peak E 0.59 m/sec - --- E/e', med xuan, 11 Peak A 1.16 m/sec ---- TDI Decel time 176 ms ---- E', avg, TDI 5.6 cm/sec Peak E/A ratio 0.5 ---- E/e', avg, TDI 11 <=14 Pulmonic valve Value Ref LVOT Value Ref Peak v, S 1.02 m/sec ---- Peak bianka, S 0.93 m/sec Peak grad, S 4.0 mm Hg ---- VTI, S 18.0 cm Mean grad, S 3 mm Hg Aortic root Value Ref Root diam 3.0 cm <4.2 Ventricular septum Value Ref IVS, ED (H) 1.2 cm 0.6 - 0.9 Ascending aorta Value Ref AAo AP diam, S 2.7 cm ---- Right ventricle Value Ref AAo AP diam/bsa, S 1.3 cm/m^2 ---- MISA, LAX 2.6 cm MISA minor ax, A4C 3.5 cm 1.9 - 3.5 Aortic arch Value Ref mid Arch diam 2.0 cm ---- Left atrium Value Ref Decending aorta Value Ref AP dim, ES (H) 3.90 cm 2.70 - Keshia peak bianka 0.86 m/sec ---- 3.80 ML dim, A4C 4.0 cm Inferior vena cava Value Ref SI dim, A4C 5.3 cm Diam 1.8 cm ---- Vol/bsa, ES, 1-p 15 ml/m^2 11 - 40 A4C Vol/bsa, ES, A/L 24 ml/m^2 16 - 34 Right atrium Value Ref ML dim, ES, A4C 3.0 cm 2.6 - 4.4 SI dim, ES, A4C 5.2 cm 3.4 - 5.3 Estimated RAP 3 mm Hg Legend: (L) and (H) janice values outside specified reference range. Prepared and electronically signed by Isaac Oh MD 12/25/2019 12:19
[2019-12-25] MEDS ORDERED: Acetaminophen TAB* 325 MG PO PRN (15:36)
[2019-12-25] MEDS: cefTRIAXone(*) 1 GM in NS 0.9% 50 ML* 50 ML IVPB SCH (16:41)
[2019-12-25 16:55] LABS: Magnesium 1.6 mg/dL (1.9-2.7)
[2019-12-25] MEDS ORDERED: Magnesium Sulfate 2 GM IV* 2 GM/50 ML BAG IVPB ONE (18:37)
[2019-12-25] MEDS: Enoxaparin(*) 40 MG/0.4 ML SYR SUBCUT SCH (19:13)
[2019-12-25] MEDS: Erythromycin OPTH OINT* APPLIC OINT BOTH EYES SCH (22:49)
[2019-12-26] MEDS: DOXYcycline IV* 100 MG in NS 0.9% 250 ML* 250 ML IVPB SCH ×2 (05:50→17:39)
[2019-12-26 07:33] LABS: BUN/Creatinine Ratio 29.3 (8-20); Calcium 8.7 mg/dL (8.6-10.3); EGFR African American 56.6 (>60); EGFR Non-African American 46.7 (>60); Potassium 4.7 mmol/L (3.5-5.0)
[2019-12-26] MEDS: OLOPATADINE 0.7% BOTH EYES SCH (07:36)
[2019-12-26] MEDS: Oxybutynin XL TAB* 5 MG PO SCH (07:37)
[2019-12-26] MEDS: Sertraline* 50 MG TAB PO SCH (07:37)
[2019-12-26] MEDS: Divalproex DR TAB(*) 250 MG PO SCH ×3 (07:37→20:06)
--- NOTE | 2019-12-26 12:10 | PN ---
Subjective Date of Service: 12/26/19 Interval History: Patient's sister, who is her primary career development counselor, is at bedside and confirms with me that patient takes depakote due to hx of seizure disorder. Tells me patient has not had a seizure in many years. Patient tells me her breathing feels comfortable and denies chest pain. She says her cough is still bothering her but is able to bring up phlegm. Family and nursing has been encouraging spitting out sputum. Patient denies abd pain, fever/chills, nausea. Patient has intellectual disability and again today states , "I hope I don't have to have surgery!" Objective Active Medications: Acetaminophen (Tylenol Tab*) 650 mg PO Q6H PRN PRN Reason: PAIN - MILD Last Admin: 12/25/19 15:53 Dose: 650 mg Divalproex Sodium (Depakote Dr Tab(*)) 250 mg PO TID [facility] Last Admin: 12/26/19 07:37 Dose: 250 mg Enoxaparin Sodium (Lovenox(*)) 40 mg SUBCUT Q24H [facility] Last Admin: 12/25/19 19:13 Dose: 40 mg Erythromycin (Erythromycin Opth Oint*) 1 applic BOTH EYES BEDTIME [facility] Last Admin: 12/25/19 22:49 Dose: 1 applic Doxycycline Hyclate 100 mg/ (Sodium Chloride) 250 mls @ 250 mls/hr IVPB Q12H [facility] Last Admin: 12/26/19 05:50 Dose: 250 mls/hr Ceftriaxone Sodium 1 gm/ (Sodium Chloride) 50 mls @ 100 mls/hr IVPB Q24H [facility] Last Admin: 12/25/19 16:41 Dose: 100 mls/hr Non-Formulary Medication (Pazeo 0.7% Opthalmic Soln) 1 drop BOTH EYES QAM [facility] Last Admin: 12/26/19 07:36 Dose: Not Given Oxybutynin Chloride (Ditropan Xl Tab*) 15 mg PO DAILY [facility] Last Admin: 12/26/19 07:37 Dose: 15 mg Sertraline HCl (Zoloft*) 150 mg PO DAILY [facility] Last Admin: 12/26/19 07:37 Dose: 150 mg Vital Signs - 8 hr 12/26/19 12/26/19 12/26/19 03:25 07:15 08:00 Temperature 97.6 F 97.0 F Pulse Rate 80 87 Respiratory 16 20 16 Rate Blood Pressure 130/64 150/89 (mmHg) O2 Sat by Pulse 94 98 Oximetry Oxygen Devices in Use Now: Nasal Cannula Appearance: Obese, elderly white female laying upright in bed appearing in NAD Eyes: No Scleral Icterus, - - PERRL Ears/Nose/Mouth/Throat: Mucous Membranes Moist Neck: Trachea Midline Respiratory: Symmetrical Chest Expansion and Respiratory Effort, - - difficult to ausculate due to poor patient effort but no adventitious lung sounds throughout after cough Cardiovascular: NL Sounds; No Murmurs; No JVD, RRR Abdominal: - - abd soft, nontender, nondistended Extremities: No Edema, No Clubbing, Cyanosis Skin: No Rash or Ulcers Neurological: Alert and Oriented x 3 Result Diagrams: 12/25/19 06:43 12/26/19 06:43 Assess/Plan/Problems-Billing Assessment: 64 yo white female with PMHx intellectual delay, cardiomegaly, seizure disorder , overactive bladder, anxiety/depression presents with shortness of breath. - Patient Problems (1) Acute respiratory failure with hypoxia Current Visit: Yes Status: Acute Code(s): J96.01 - ACUTE RESPIRATORY FAILURE WITH HYPOXIA SNOMED Code(s): 07198287 Comment: -etiology unclear at this time, but my leading differential dx is pneumonia considering the presenting clinical picture of leukocytosis and URI sxs leading up to presentation -with the CXR demonstrating some concerning features of pulmonary edema, I do have concern for possible underlying HF, additionally given hx of cardiomegaly -echo demonstrates diastolic HF but I would be hesitant to diurese at this time as patient is more likely dry in setting of infection -continue empiric abx: doxy and ceftriaxone -leukocytosis is resolved; patient is afebrile -on 3L oxygen, will wean as tolerated; improved from yesterday -if not improving after 48 hrs IV abx then should consider diuresis and CT chest -flutter valve, incentive spirometry -afebrile (2) Frequent PVCs Current Visit: Yes Status: Acute Code(s): I49.3 - VENTRICULAR PREMATURE DEPOLARIZATION SNOMED Code(s): 68476031 Comment: -frequent long runs of PVCs, with runs as long as 8 beats to 20 beats yesterday , asymptomatic -not Vtach as patient wass not tachycardic during these runs, rates in 90s -resolved today, no abnormalities on tele -likely due to hypomagnesemia which is resolved today after replacement yesterday -continue tele (3) Overactive bladder Current Visit: Yes Status: Acute Code(s): N32.81 - OVERACTIVE BLADDER SNOMED Code(s): 400105338 Comment: -continue oxybutynin (4) Anxiety and depression Current Visit: Yes Status: Acute Code(s): F41.9 - ANXIETY DISORDER, UNSPECIFIED; F32.9 - MAJOR DEPRESSIVE DISORDER, SINGLE EPISODE, UNSPECIFIED SNOMED Code(s): 507963249 Comment: -continue zoloft (5) Intellectual delay Current Visit: Yes Status: Acute Code(s): F81.9 - DEVELOPMENTAL DISORDER OF SCHOLASTIC SKILLS, UNSPECIFIED SNOMED Code(s): 537133516 Comment: -supportive care (6) Seizure disorder Current Visit: Yes Status: Acute Code(s): G40.909 - EPILEPSY, UNSP, NOT INTRACTABLE, WITHOUT STATUS EPILEPTICUS SNOMED Code(s): 283510450 Comment: -sister tells me patient has not had seizure in many years -continue depakote (7) DVT prophylaxis Current Visit: Yes Status: Acute Code(s): Z29.9 - ENCOUNTER FOR PROPHYLACTIC MEASURES, UNSPECIFIED SNOMED Code(s): 804656271 Comment: -lovenox (8) Full code status Current Visit: Yes Status: Acute Code(s): Z78.9 - OTHER SPECIFIED HEALTH STATUS SNOMED Code(s): 518723845 Status and Disposition: pending further improvement
[2019-12-26] MEDS: Lactobacillus Acidophilus* 1 TAB PO SCH (13:23)
[2019-12-26] MEDS: Enoxaparin(*) 40 MG/0.4 ML SYR SUBCUT SCH (16:48)
[2019-12-26] MEDS: cefTRIAXone(*) 1 GM in NS 0.9% 50 ML* 50 ML IVPB SCH (16:48)
[2019-12-26] MEDS: Erythromycin OPTH OINT* APPLIC OINT BOTH EYES SCH (20:07)
[2019-12-27] MEDS: DOXYcycline IV* 100 MG in NS 0.9% 250 ML* 250 ML IVPB SCH ×2 (06:13→19:21)
[2019-12-27] MEDS: Lactobacillus Acidophilus* 1 TAB PO SCH (07:42)
[2019-12-27] MEDS: Divalproex DR TAB(*) 250 MG PO SCH ×3 (07:42→21:17)
[2019-12-27] MEDS: Sertraline* 50 MG TAB PO SCH (07:42)
[2019-12-27] MEDS: Oxybutynin XL TAB* 5 MG PO SCH (07:42)
[2019-12-27] MEDS: OLOPATADINE 0.7% BOTH EYES SCH (07:51)
[2019-12-27] MEDS: Nystatin TOP POWDER* 15 GM BTL TOPICAL SCH ×3 (08:28→21:16)
--- NOTE | 2019-12-27 12:18 | PN ---
Subjective Date of Service: 12/27/19 Interval History: Patient asks for pictures of horses today. She otherwise has no complaints. She continues to have a cough. Nursing and family encourage her to cough up sputum, but she says "I don't like to." Her cough is productive. She denies fever/chills , chest pain, difficulty breathing, abd pain. Objective Active Medications: Acetaminophen (Tylenol Tab*) 650 mg PO Q6H PRN PRN Reason: PAIN - MILD Last Admin: 12/25/19 15:53 Dose: 650 mg Divalproex Sodium (Depakote Dr Tab(*)) 250 mg PO TID [facility] Last Admin: 12/27/19 07:42 Dose: 250 mg Enoxaparin Sodium (Lovenox(*)) 40 mg SUBCUT Q24H [facility] Last Admin: 12/26/19 16:48 Dose: 40 mg Erythromycin (Erythromycin Opth Oint*) 1 applic BOTH EYES BEDTIME [facility] Last Admin: 12/26/19 20:07 Dose: 1 applic Doxycycline Hyclate 100 mg/ (Sodium Chloride) 250 mls @ 250 mls/hr IVPB Q12H [facility] Last Admin: 12/27/19 06:13 Dose: 250 mls/hr Ceftriaxone Sodium 1 gm/ (Sodium Chloride) 50 mls @ 100 mls/hr IVPB Q24H [facility] Last Admin: 12/26/19 16:48 Dose: 100 mls/hr Lactobacillus Rhamnosus (Lactobacillus Acidophilus*) 1 tab PO DAILY [facility] Last Admin: 12/27/19 07:42 Dose: 1 tab Non-Formulary Medication (Pazeo 0.7% Opthalmic Soln) 1 drop BOTH EYES QAM [facility] Last Admin: 12/27/19 07:51 Dose: Not Given Nystatin (Nystatin Top Powder*) 1 applic TOPICAL TID [facility] Last Admin: 12/27/19 08:28 Dose: Not Given Oxybutynin Chloride (Ditropan Xl Tab*) 15 mg PO DAILY [facility] Last Admin: 12/27/19 07:42 Dose: 15 mg Sertraline HCl (Zoloft*) 150 mg PO DAILY [facility] Last Admin: 12/27/19 07:42 Dose: 150 mg Vital Signs - 8 hr 12/27/19 12/27/19 12/27/19 07:50 08:03 08:05 Temperature 97.6 F Pulse Rate 93 Respiratory 16 20 Rate Blood Pressure 145/79 (mmHg) O2 Sat by Pulse 90 91 Oximetry 12/27/19 11:15 Temperature 97.6 F Pulse Rate 94 Respiratory 18 Rate Blood Pressure 137/77 (mmHg) O2 Sat by Pulse 94 Oximetry Oxygen Devices in Use Now: Nasal Cannula Appearance: Obese, elderly white female, laying upright in bed, appearing comfortable and in NAD, sister at bedside Eyes: No Scleral Icterus, - - PERRL Ears/Nose/Mouth/Throat: Mucous Membranes Moist Neck: Trachea Midline Respiratory: Symmetrical Chest Expansion and Respiratory Effort, - - improved patient effort with breath sounds today, crackles in bilateral lung bases Cardiovascular: NL Sounds; No Murmurs; No JVD, RRR Abdominal: - - abd soft, nontender, nondistended Extremities: No Edema, No Clubbing, Cyanosis Skin: No Rash or Ulcers Neurological: Alert and Oriented x 3 Result Diagrams: 12/25/19 06:43 12/26/19 06:43 Assess/Plan/Problems-Billing Assessment: 64 yo white female with PMHx intellectual delay, cardiomegaly, seizure disorder , overactive bladder, anxiety/depression presents with shortness of breath. - Patient Problems (1) Acute respiratory failure with hypoxia Current Visit: Yes Status: Acute Code(s): J96.01 - ACUTE RESPIRATORY FAILURE WITH HYPOXIA SNOMED Code(s): 09198839 Comment: -etiology unclear at this time, but my leading differential dx is pneumonia considering the presenting clinical picture of leukocytosis and URI sxs leading up to presentation -with the CXR demonstrating some concerning features of pulmonary edema, I do have concern for possible underlying HF, additionally given hx of cardiomegaly -echo demonstrates diastolic HF -on 3L oxygen, will wean as tolerated; oxygen requirement has not improved since yesterday -CT chest today looks like patchy pneumonia but also I see fluid in the fissures , will try one dose IV lasix -continue empiric abx: doxy and ceftriaxone -flutter valve, incentive spirometry -afebrile, no leukocytosis (2) Overactive bladder Current Visit: Yes Status: Acute Code(s): N32.81 - OVERACTIVE BLADDER SNOMED Code(s): 685980785 Comment: -continue oxybutynin (3) Anxiety and depression Current Visit: Yes Status: Acute Code(s): F41.9 - ANXIETY DISORDER, UNSPECIFIED; F32.9 - MAJOR DEPRESSIVE DISORDER, SINGLE EPISODE, UNSPECIFIED SNOMED Code(s): 960056861 Comment: -continue zoloft (4) Intellectual delay Current Visit: Yes Status: Acute Code(s): F81.9 - DEVELOPMENTAL DISORDER OF SCHOLASTIC SKILLS, UNSPECIFIED SNOMED Code(s): 593158360 Comment: -supportive care (5) Seizure disorder Current Visit: Yes Status: Acute Code(s): G40.909 - EPILEPSY, UNSP, NOT INTRACTABLE, WITHOUT STATUS EPILEPTICUS SNOMED Code(s): 616325798 Comment: -sister tells me patient has not had seizure in many years -continue depakote (6) BETTY (acute kidney injury) Current Visit: Yes Status: Acute Code(s): N17.9 - ACUTE KIDNEY FAILURE, UNSPECIFIED SNOMED Code(s): 47777370 Comment: -BETTY at admission, downtrending -likely prerenal in setting of suspected pneumonia (7) DVT prophylaxis Current Visit: Yes Status: Acute Code(s): Z29.9 - ENCOUNTER FOR PROPHYLACTIC MEASURES, UNSPECIFIED SNOMED Code(s): 125908748 Comment: -lovenox (8) Full code status Current Visit: Yes Status: Acute Code(s): Z78.9 - OTHER SPECIFIED HEALTH STATUS SNOMED Code(s): 812514647 Status and Disposition: pending further improvement
[2019-12-27] MEDS ORDERED: guaiFENesin 100 mg/5 ml LIQ unit dose cup PO PRN (13:52)
[2019-12-27] MEDS: Furosemide IV* 10 MG/ML VIAL (40 MG) IV ONE ×2 (14:49→16:35)
[2019-12-27] MEDS: cefTRIAXone(*) 1 GM in NS 0.9% 50 ML* 50 ML IVPB SCH (16:35)
[2019-12-27] MEDS: Enoxaparin(*) 40 MG/0.4 ML SYR SUBCUT SCH (19:21)
[2019-12-27] MEDS: Erythromycin OPTH OINT* APPLIC OINT BOTH EYES SCH (21:42)
[2019-12-28] MEDS: DOXYcycline IV* 100 MG in NS 0.9% 250 ML* 250 ML IVPB SCH ×2 (05:32→18:39)
[2019-12-28 09:59] LABS: Calcium 9.5 mg/dL (8.6-10.3); EGFR African American 60.1 (>60); EGFR Non-African American 49.7 (>60); Magnesium 1.7 mg/dL (1.9-2.7); Potassium 4.6 mmol/L (3.5-5.0)
[2019-12-28] MEDS ORDERED: Magnesium Sulfate 2 GM IV* 2 GM/50 ML BAG IVPB ONE (10:37)
[2019-12-28] MEDS: Oxybutynin XL TAB* 5 MG PO SCH (11:35)
[2019-12-28] MEDS: Lactobacillus Acidophilus* 1 TAB PO SCH (11:35)
[2019-12-28] MEDS: Sertraline* 50 MG TAB PO SCH (11:35)
[2019-12-28] MEDS: OLOPATADINE 0.7% BOTH EYES SCH (11:36)
[2019-12-28] MEDS: Nystatin TOP POWDER* 15 GM BTL TOPICAL SCH ×3 (11:36→21:19)
[2019-12-28] MEDS: Divalproex DR TAB(*) 250 MG PO SCH ×3 (11:41→21:16)
--- NOTE | 2019-12-28 13:31 | PN ---
Subjective Date of Service: 12/28/19 Interval History: Patient's sister tells me that chest PT has helped her in a past hospitalization in [place], though the patient did not enjoy it. Patient continues to have a cough but is not exhibiting effort to bring up sputum as frequently. Denies difficulty breathing, chest pain, abd pain, fever/ chills. Objective Active Medications: Acetaminophen (Tylenol Tab*) 650 mg PO Q6H PRN PRN Reason: PAIN - MILD Last Admin: 12/25/19 15:53 Dose: 650 mg Albuterol/Ipratropium (Duoneb (Albuterol 2.5 Mg/Ipratropium 0.5 Mg)) 1 neb INH [id number] AWAKE [facility] Divalproex Sodium (Depakote Dr Tab(*)) 250 mg PO TID [facility] Last Admin: 12/28/19 11:41 Dose: Not Given Enoxaparin Sodium (Lovenox(*)) 40 mg SUBCUT Q24H [facility] Last Admin: 12/27/19 19:21 Dose: 40 mg Erythromycin (Erythromycin Opth Oint*) 1 applic BOTH EYES BEDTIME [facility] Last Admin: 12/27/19 21:42 Dose: 1 applic Guaifenesin (Robitussin 100 Mg/5ml Liq) 5 ml PO Q4H PRN PRN Reason: COUGH Doxycycline Hyclate 100 mg/ (Sodium Chloride) 250 mls @ 250 mls/hr IVPB Q12H [facility] Last Admin: 12/28/19 05:32 Dose: 250 mls/hr Ceftriaxone Sodium 1 gm/ (Sodium Chloride) 50 mls @ 100 mls/hr IVPB Q24H [facility] Last Admin: 12/27/19 16:35 Dose: 100 mls/hr Lactobacillus Rhamnosus (Lactobacillus Acidophilus*) 1 tab PO DAILY [facility] Last Admin: 12/28/19 11:35 Dose: 1 tab Non-Formulary Medication (Pazeo 0.7% Opthalmic Soln) 1 drop BOTH EYES QAM [facility] Last Admin: 12/28/19 11:36 Dose: Not Given Nystatin (Nystatin Top Powder*) 1 applic TOPICAL TID [facility] Last Admin: 12/28/19 11:36 Dose: Not Given Oxybutynin Chloride (Ditropan Xl Tab*) 15 mg PO DAILY [facility] Last Admin: 12/28/19 11:35 Dose: 15 mg Sertraline HCl (Zoloft*) 150 mg PO DAILY [facility] Last Admin: 12/28/19 11:35 Dose: 150 mg Vital Signs - 8 hr 12/28/19 12/28/19 12/28/19 07:15 08:00 11:15 Temperature 98.1 F 97.6 F Pulse Rate 90 104 Respiratory 22 18 21 Rate Blood Pressure 126/73 126/64 (mmHg) O2 Sat by Pulse 98 91 Oximetry Oxygen Devices in Use Now: Nasal Cannula Appearance: Obese, elderly white female, sitting in chair, appearing comfortable and in NAD Eyes: No Scleral Icterus, - - PERRL Ears/Nose/Mouth/Throat: Mucous Membranes Moist Neck: Trachea Midline Respiratory: Symmetrical Chest Expansion and Respiratory Effort, - - brackles in bilateral lung bases, rhonchi anteriorly Cardiovascular: NL Sounds; No Murmurs; No JVD, RRR Abdominal: - - abd soft, nontender, nondistended Extremities: No Edema, No Clubbing, Cyanosis Skin: No Rash or Ulcers Neurological: Alert and Oriented x 3 Result Diagrams: 12/25/19 06:43 12/28/19 09:33 Assess/Plan/Problems-Billing Assessment: 64 yo white female with PMHx intellectual delay, cardiomegaly, seizure disorder , overactive bladder, anxiety/depression presents with shortness of breath. - Patient Problems (1) Acute respiratory failure with hypoxia Current Visit: Yes Status: Acute Code(s): J96.01 - ACUTE RESPIRATORY FAILURE WITH HYPOXIA SNOMED Code(s): 94873517 Comment: -CTA negative for central PE -etiology unclear at this time, but my leading differential dx is pneumonia considering the presenting clinical picture of leukocytosis and URI sxs leading up to presentation -with the CXR demonstrating some concerning features of pulmonary edema, I do have concern for possible underlying HF, additionally given hx of cardiomegaly -echo demonstrates diastolic HF -CT chest today looks like patchy pneumonia but also I see fluid in the fissures , tried one dose lasix yesterday but no plans to repeat today -somewhat decreased oxygen requirement today, from 3L to 2L -continue empiric abx: doxy and ceftriaxone -flutter valve, incentive spirometry -ordering chest physiotherapy and scheduled duonebs -afebrile, no leukocytosis (2) Frequent PVCs Current Visit: Yes Status: Acute Code(s): I49.3 - VENTRICULAR PREMATURE DEPOLARIZATION SNOMED Code(s): 29892651 Comment: -again with frequent PVCs today -Mag is low again, likely due to lasix yesterday -replacing and will recheck (3) Overactive bladder Current Visit: Yes Status: Acute Code(s): N32.81 - OVERACTIVE BLADDER SNOMED Code(s): 225400688 Comment: -continue oxybutynin (4) Anxiety and depression Current Visit: Yes Status: Acute Code(s): F41.9 - ANXIETY DISORDER, UNSPECIFIED; F32.9 - MAJOR DEPRESSIVE DISORDER, SINGLE EPISODE, UNSPECIFIED SNOMED Code(s): 703529477 Comment: -continue zoloft (5) Intellectual delay Current Visit: Yes Status: Acute Code(s): F81.9 - DEVELOPMENTAL DISORDER OF SCHOLASTIC SKILLS, UNSPECIFIED SNOMED Code(s): 715501136 Comment: -supportive care (6) Seizure disorder Current Visit: Yes Status: Acute Code(s): G40.909 - EPILEPSY, UNSP, NOT INTRACTABLE, WITHOUT STATUS EPILEPTICUS SNOMED Code(s): 812857928 Comment: -sister tells me patient has not had seizure in many years -continue depakote (7) BETTY (acute kidney injury) Current Visit: Yes Status: Acute Code(s): N17.9 - ACUTE KIDNEY FAILURE, UNSPECIFIED SNOMED Code(s): 20679563 Comment: -BETTY at admission, resolved now -likely prerenal in setting of suspected pneumonia (8) DVT prophylaxis Current Visit: Yes Status: Acute Code(s): Z29.9 - ENCOUNTER FOR PROPHYLACTIC MEASURES, UNSPECIFIED SNOMED Code(s): 276445032 Comment: -lovenox (9) Full code status Current Visit: Yes Status: Acute Code(s): Z78.9 - OTHER SPECIFIED HEALTH STATUS SNOMED Code(s): 398782598 Status and Disposition: pending further improvement
[2019-12-28] MEDS: guaiFENesin 100 mg/5 ml LIQ unit dose cup PO SCH ×3 (14:00→22:21)
[2019-12-28] MEDS: cefTRIAXone(*) 1 GM in NS 0.9% 50 ML* 50 ML IVPB SCH (16:59)
[2019-12-28] MEDS: Enoxaparin(*) 40 MG/0.4 ML SYR SUBCUT SCH (18:42)
[2019-12-28] MEDS: Albuterol/Ipratropium NEB.SOL* Albuterol 2.5 MG/Ipratropium 0.5 MG 3 ML INH SCH (19:15)
[2019-12-28] MEDS: Erythromycin OPTH OINT* APPLIC OINT BOTH EYES SCH (21:17)
[2019-12-29] MEDS: Albuterol/Ipratropium NEB.SOL* Albuterol 2.5 MG/Ipratropium 0.5 MG 3 ML INH SCH ×4 (01:19→20:08)
[2019-12-29] MEDS: guaiFENesin 100 mg/5 ml LIQ unit dose cup PO SCH ×6 (01:35→21:10)
[2019-12-29] MEDS: DOXYcycline IV* 100 MG in NS 0.9% 250 ML* 250 ML IVPB SCH (05:27)
[2019-12-29 05:37] LABS: Hematocrit 33 % (35-47); Hemoglobin 11.4 g/dL (12.0-16.0); Mean Corpuscular HGB Conc 34 g/dL (31-36); Mean Corpuscular Hemoglobin 31 pg (27-31); Mean Corpuscular Volume 90 fL (80-97); Mean Platelet Volume 8.9 fL (7.4-10.4); Platelet Count 125 10^3/uL (150-450); Red Cell Distribution Width 14 % (10-15); White Blood Count 8.9 10^3/uL (3.5-10.8)
[2019-12-29 05:48] LABS: BUN/Creatinine Ratio 34.8 (8-20); Calcium 8.9 mg/dL (8.6-10.3); EGFR African American 57.1 (>60); EGFR Non-African American 47.2 (>60)
[2019-12-29 06:18] LABS: ABS Eosinophils 0.4 10^3/ul (0-0.6); ABS Lymphocytes 1.7 10^3/ul (1.0-4.8); ABS Monocytes 0.9 10^3/ul (0-0.8); Eosinophil % 4.1 %; Lymphocyte % 18.9 %; Nucleated Red Blood Cells % 0.1
[2019-12-29] MEDS: Sertraline* 50 MG TAB PO SCH (09:34)
[2019-12-29] MEDS: Oxybutynin XL TAB* 5 MG PO SCH (09:34)
[2019-12-29] MEDS: Lactobacillus Acidophilus* 1 TAB PO SCH (09:34)
[2019-12-29] MEDS: Divalproex DR TAB(*) 250 MG PO SCH ×3 (09:34→21:08)
--- NOTE | 2019-12-29 10:10 | PN ---
Subjective Date of Service: 12/29/19 Interval History: Patient has been refusing chest physiotherapy, though she does not have capacity to refuse due to her intellectual disability. Patient has no complaints at time of evaluation. Continues to cough. Denies difficulty breathing, fever/chills, chest pain, abd pain. Objective Active Medications: Acetaminophen (Tylenol Tab*) 650 mg PO Q6H PRN PRN Reason: PAIN - MILD Last Admin: 12/25/19 15:53 Dose: 650 mg Albuterol/Ipratropium (Duoneb (Albuterol 2.5 Mg/Ipratropium 0.5 Mg)) 1 neb INH [id number] AWAKE [facility] Last Admin: 12/29/19 07:44 Dose: Not Given Divalproex Sodium (Depakote Dr Tab(*)) 250 mg PO TID [facility] Last Admin: 12/29/19 09:34 Dose: 250 mg Enoxaparin Sodium (Lovenox(*)) 40 mg SUBCUT Q24H [facility] Last Admin: 12/28/19 18:42 Dose: 40 mg Erythromycin (Erythromycin Opth Oint*) 1 applic BOTH EYES BEDTIME [facility] Last Admin: 12/28/19 21:17 Dose: 1 applic Guaifenesin (Robitussin 100 Mg/5ml Liq) 5 ml PO Q4H [facility] Last Admin: 12/29/19 09:41 Dose: Not Given Heparin Sodium (Porcine) (Heparin Flush Picc/Ml/Cvc(*)) 1 ml FLUSH 0600,1800 [facility]; Protocol Last Admin: 12/29/19 09:34 Dose: 1 ml Doxycycline Hyclate 100 mg/ (Sodium Chloride) 250 mls @ 250 mls/hr IVPB Q12H [facility] Last Admin: 12/29/19 05:27 Dose: 250 mls/hr Ceftriaxone Sodium 1 gm/ (Sodium Chloride) 50 mls @ 100 mls/hr IVPB Q24H [facility] Last Admin: 12/28/19 16:59 Dose: 100 mls/hr Lactobacillus Rhamnosus (Lactobacillus Acidophilus*) 1 tab PO DAILY [facility] Last Admin: 12/29/19 09:34 Dose: 1 tab Non-Formulary Medication (Pazeo 0.7% Opthalmic Soln) 1 drop BOTH EYES QAM [facility] Last Admin: 02/21/20 11:36 Dose: Not Given Nystatin (Nystatin Top Powder*) 1 applic TOPICAL TID [facility] Last Admin: 12/28/19 21:19 Dose: 1 applic Oxybutynin Chloride (Ditropan Xl Tab*) 15 mg PO DAILY [facility] Last Admin: 12/29/19 09:34 Dose: 15 mg Sertraline HCl (Zoloft*) 150 mg PO DAILY [facility] Last Admin: 12/29/19 09:34 Dose: 150 mg Vital Signs - 8 hr 12/29/19 12/29/19 12/29/19 03:12 07:15 08:00 Temperature 98.6 F 97.7 F Pulse Rate 85 88 Respiratory 20 18 18 Rate Blood Pressure 124/70 115/71 (mmHg) O2 Sat by Pulse 93 91 Oximetry Oxygen Devices in Use Now: Nasal Cannula Appearance: Obese, elderly white female, sitting in chair, appearing comfortable and in NAD Eyes: No Scleral Icterus, - - PERRL Ears/Nose/Mouth/Throat: Mucous Membranes Moist Neck: Trachea Midline Respiratory: Symmetrical Chest Expansion and Respiratory Effort, - - crackles in bilateral bases and mid lung keating Cardiovascular: NL Sounds; No Murmurs; No JVD, RRR Abdominal: - - abd soft, nontender, nondistneded Extremities: No Edema, No Clubbing, Cyanosis Skin: No Rash or Ulcers Neurological: Alert and Oriented x 3 Result Diagrams: 12/29/19 05:22 12/29/19 05:22 Assess/Plan/Problems-Billing Assessment: 64 yo white female with PMHx intellectual delay, cardiomegaly, seizure disorder , overactive bladder, anxiety/depression presents with shortness of breath. - Patient Problems (1) Community acquired pneumonia Current Visit: Yes Status: Acute Code(s): J18.9 - PNEUMONIA, UNSPECIFIED ORGANISM SNOMED Code(s): 525954605 Comment: -patient presented with several days of URI sxs and worsening cough, found to be hypoxic -CXR and later chest CT concerning for PNA -continue empiric coverage with doxy and ceftriaxone -patient continues to require oxygen, only minimal improvement 2 L -patient has been declining chest PT but does not have capacity to make her own medical decisions due to intellectual disability; continue this, flutter valve, and incentive spirometry -cont scheduled duonebs -if no improvement throughout today, will trial po steroids -afebrile (2) Acute respiratory failure with hypoxia Current Visit: Yes Status: Acute Code(s): J96.01 - ACUTE RESPIRATORY FAILURE WITH HYPOXIA SNOMED Code(s): 01972357 Comment: -CTA negative for central PE -2/2 PNA -I did have concern for some pleural fluid in the fissures on chest CT and tried one dose IV lasix with little improvement (3) Frequent PVCs Current Visit: Yes Status: Acute Code(s): I49.3 - VENTRICULAR PREMATURE DEPOLARIZATION SNOMED Code(s): 99766660 Comment: -again with frequent PVCs yesterday 2/2 hypomagnesemia -resolved (4) Overactive bladder Current Visit: Yes Status: Acute Code(s): N32.81 - OVERACTIVE BLADDER SNOMED Code(s): 545046084 Comment: -continue oxybutynin (5) Anxiety and depression Current Visit: Yes Status: Acute Code(s): F41.9 - ANXIETY DISORDER, UNSPECIFIED; F32.9 - MAJOR DEPRESSIVE DISORDER, SINGLE EPISODE, UNSPECIFIED SNOMED Code(s): 951869611 Comment: -continue zoloft (6) Intellectual delay Current Visit: Yes Status: Acute Code(s): F81.9 - DEVELOPMENTAL DISORDER OF SCHOLASTIC SKILLS, UNSPECIFIED SNOMED Code(s): 319538715 Comment: -supportive care (7) Seizure disorder Current Visit: Yes Status: Acute Code(s): G40.909 - EPILEPSY, UNSP, NOT INTRACTABLE, WITHOUT STATUS EPILEPTICUS SNOMED Code(s): 011385934 Comment: -sister tells me patient has not had seizure in many years -continue depakote (8) BETTY (acute kidney injury) Current Visit: Yes Status: Acute Code(s): N17.9 - ACUTE KIDNEY FAILURE, UNSPECIFIED SNOMED Code(s): 96730751 Comment: -BETTY at admission, resolved now -likely prerenal in setting of suspected pneumonia (9) DVT prophylaxis Current Visit: Yes Status: Acute Code(s): Z29.9 - ENCOUNTER FOR PROPHYLACTIC MEASURES, UNSPECIFIED SNOMED Code(s): 360355479 Comment: -lovenox (10) Full code status Current Visit: Yes Status: Acute Code(s): Z78.9 - OTHER SPECIFIED HEALTH STATUS SNOMED Code(s): 621568737 Status and Disposition: pending further improvement
[2019-12-29] MEDS: Nystatin TOP POWDER* 15 GM BTL TOPICAL SCH ×3 (10:13→21:07)
[2019-12-29] MEDS: OLOPATADINE 0.7% BOTH EYES SCH (10:13)
[2019-12-29] MEDS: cefTRIAXone(*) 1 GM in NS 0.9% 50 ML* 50 ML IVPB SCH (19:11)
[2019-12-29] MEDS: Enoxaparin(*) 40 MG/0.4 ML SYR SUBCUT SCH (19:15)
[2019-12-29] MEDS: DOXYcycline CAP(*) 100 MG PO SCH (21:08)
[2019-12-29] MEDS: Erythromycin OPTH OINT* APPLIC OINT BOTH EYES SCH (21:12)
[2019-12-30] MEDS: Albuterol/Ipratropium NEB.SOL* Albuterol 2.5 MG/Ipratropium 0.5 MG 3 ML INH SCH ×4 (01:10→19:11)
[2019-12-30] MEDS: guaiFENesin 100 mg/5 ml LIQ unit dose cup PO SCH ×6 (02:36→21:22)
[2019-12-30] MEDS: Oxybutynin XL TAB* 5 MG PO SCH (07:08)
[2019-12-30] MEDS: Divalproex DR TAB(*) 250 MG PO SCH ×3 (07:08→19:36)
[2019-12-30] MEDS: DOXYcycline CAP(*) 100 MG PO SCH ×2 (07:09→19:36)
[2019-12-30] MEDS: Sertraline* 50 MG TAB PO SCH (07:09)
[2019-12-30] MEDS: Nystatin TOP POWDER* 15 GM BTL TOPICAL SCH ×3 (07:09→19:36)
[2019-12-30] MEDS: Lactobacillus Acidophilus* 1 TAB PO SCH (07:09)
[2019-12-30] MEDS: OLOPATADINE 0.7% BOTH EYES SCH (07:09)
--- NOTE | 2019-12-30 11:04 | PN ---
Subjective Date of Service: 12/30/19 Interval History: Patient's sister believes her cough is coming less productive. No acute overnight events. She asks when she can go home. She does still cough but she thinks she isn't bringing up as much phlegm. She denies fever/chills, difficulty breathing, chest pain, abd pain. She mentions she has right knee pain , which is chronic. Objective Active Medications: Acetaminophen (Tylenol Tab*) 650 mg PO Q6H PRN PRN Reason: PAIN - MILD Last Admin: 12/25/19 15:53 Dose: 650 mg Albuterol/Ipratropium (Duoneb (Albuterol 2.5 Mg/Ipratropium 0.5 Mg)) 1 neb INH [id number] AWAKE [facility] Last Admin: 12/30/19 08:03 Dose: 1 neb Divalproex Sodium (Depakote Dr Tab(*)) 250 mg PO TID [facility] Last Admin: 12/30/19 07:08 Dose: 250 mg Doxycycline Hyclate (Vibramycin Cap(*)) 100 mg PO BID [facility] Last Admin: 12/30/19 07:09 Dose: 100 mg Enoxaparin Sodium (Lovenox(*)) 40 mg SUBCUT Q24H [facility] Last Admin: 12/29/19 19:15 Dose: 40 mg Erythromycin (Erythromycin Opth Oint*) 1 applic BOTH EYES BEDTIME [facility] Last Admin: 12/29/19 21:12 Dose: 1 applic Guaifenesin (Robitussin 100 Mg/5ml Liq) 5 ml PO Q4H [facility] Last Admin: 12/30/19 08:14 Dose: 5 ml Heparin Sodium (Porcine) (Heparin Flush Picc/Ml/Cvc(*)) 1 ml FLUSH 0600,1800 [facility]; Protocol Last Admin: 12/30/19 05:32 Dose: 1 ml Ceftriaxone Sodium 1 gm/ (Sodium Chloride) 50 mls @ 100 mls/hr IVPB Q24H [facility] Last Admin: 12/29/19 19:11 Dose: 100 mls/hr Lactobacillus Rhamnosus (Lactobacillus Acidophilus*) 1 tab PO DAILY [facility] Last Admin: 12/30/19 07:09 Dose: 1 tab Non-Formulary Medication (Pazeo 0.7% Opthalmic Soln) 1 drop BOTH EYES QAM [facility] Last Admin: 02/23/20 07:09 Dose: Not Given Nystatin (Nystatin Top Powder*) 1 applic TOPICAL TID [facility] Last Admin: 12/30/19 07:09 Dose: 1 applic Oxybutynin Chloride (Ditropan Xl Tab*) 15 mg PO DAILY [facility] Last Admin: 12/30/19 07:08 Dose: 15 mg Sertraline HCl (Zoloft*) 150 mg PO DAILY [facility] Last Admin: 12/30/19 07:09 Dose: 150 mg Vital Signs - 8 hr 12/30/19 12/30/19 12/30/19 07:03 07:19 08:05 Temperature 98.2 F Pulse Rate 86 81 Respiratory 20 20 20 Rate Blood Pressure 129/71 (mmHg) O2 Sat by Pulse 93 94 Oximetry Oxygen Devices in Use Now: Nasal Cannula Appearance: Obese, elderly white female, sitting upright in chair, appearing comfortable and in NAD Eyes: No Scleral Icterus, - - PERRL Ears/Nose/Mouth/Throat: Mucous Membranes Moist Neck: Trachea Midline Respiratory: Symmetrical Chest Expansion and Respiratory Effort, - - crackles in bilateral lung bases and in mid-lung field; no use of accessory muscles Cardiovascular: NL Sounds; No Murmurs; No JVD, RRR Abdominal: - - abd soft, nontender, nondistended Extremities: No Edema, No Clubbing, Cyanosis Skin: No Rash or Ulcers Neurological: Alert and Oriented x 3 Result Diagrams: 12/29/19 05:22 12/29/19 05:22 Microbiology and Other Data: Microbiology 12/29/19 15:50 Legionella Urinary Antigen - Final Urine Negative Legionella Antigen Streptococcus pneumoniae Ag Screen - Final Negative S. pneumo Antigen Assess/Plan/Problems-Billing Assessment: 64 yo white female with PMHx intellectual delay, cardiomegaly, seizure disorder , overactive bladder, anxiety/depression presents with shortness of breath. - Patient Problems (1) Community acquired pneumonia Current Visit: Yes Status: Acute Code(s): J18.9 - PNEUMONIA, UNSPECIFIED ORGANISM SNOMED Code(s): 431859301 Comment: -patient presented with several days of URI sxs and worsening cough, found to be hypoxic -CXR and later chest CT concerning for PNA -continue empiric coverage with doxy and ceftriaxone -patient continues to require oxygen, only minimal improvement to 2 L -continue chest physiotherapy, flutter valve, and incentive spirometry -cont scheduled duonebs -minimal improvement despite today being day [address] Mackenzie will see her tomorrow, appreciate her consult -low concern for aspiration PNA given ONLINE MERCHANDISING SPECIALIST eval without concerns -repeat CXR today without worsening findings -afebrile, no leukocytosis (2) Acute respiratory failure with hypoxia Current Visit: Yes Status: Acute Code(s): J96.01 - ACUTE RESPIRATORY FAILURE WITH HYPOXIA SNOMED Code(s): 27052086 Comment: -CTA negative for central PE -2/2 PNA -I did have concern for some pleural fluid in the fissures on chest CT and tried one dose IV lasix with little improvement (3) Overactive bladder Current Visit: Yes Status: Acute Code(s): N32.81 - OVERACTIVE BLADDER SNOMED Code(s): 351951411 Comment: -continue oxybutynin (4) Anxiety and depression Current Visit: Yes Status: Acute Code(s): F41.9 - ANXIETY DISORDER, UNSPECIFIED; F32.9 - MAJOR DEPRESSIVE DISORDER, SINGLE EPISODE, UNSPECIFIED SNOMED Code(s): 112815270 Comment: -continue zoloft (5) Intellectual delay Current Visit: Yes Status: Acute Code(s): F81.9 - DEVELOPMENTAL DISORDER OF SCHOLASTIC SKILLS, UNSPECIFIED SNOMED Code(s): 513262721 Comment: -supportive care (6) Seizure disorder Current Visit: Yes Status: Acute Code(s): G40.909 - EPILEPSY, UNSP, NOT INTRACTABLE, WITHOUT STATUS EPILEPTICUS SNOMED Code(s): 315929569 Comment: -sister tells me patient has not had seizure in many years -continue depakote (7) BETTY (acute kidney injury) Current Visit: Yes Status: Acute Code(s): N17.9 - ACUTE KIDNEY FAILURE, UNSPECIFIED SNOMED Code(s): 28314762 Comment: -BETTY at admission, resolved now -likely prerenal in setting of suspected pneumonia (8) DVT prophylaxis Current Visit: Yes Status: Acute Code(s): Z29.9 - ENCOUNTER FOR PROPHYLACTIC MEASURES, UNSPECIFIED SNOMED Code(s): 261731208 Comment: -lovenox (9) Full code status Current Visit: Yes Status: Acute Code(s): Z78.9 - OTHER SPECIFIED HEALTH STATUS SNOMED Code(s): 768164289 Status and Disposition: pending further improvement
[2019-12-30] MEDS: cefTRIAXone(*) 1 GM in NS 0.9% 50 ML* 50 ML IVPB SCH (16:01)
[2019-12-30] MEDS: Enoxaparin(*) 40 MG/0.4 ML SYR SUBCUT SCH (16:01)
[2019-12-30] MEDS: Erythromycin OPTH OINT* APPLIC OINT BOTH EYES SCH (19:36)
[2019-12-31] MEDS: Albuterol/Ipratropium NEB.SOL* Albuterol 2.5 MG/Ipratropium 0.5 MG 3 ML INH SCH ×3 (01:31→13:08)
[2019-12-31] MEDS: guaiFENesin 100 mg/5 ml LIQ unit dose cup PO SCH ×3 (03:28→10:01)
[2019-12-31] MEDS: Divalproex DR TAB(*) 250 MG PO SCH ×3 (08:43→19:58)
[2019-12-31] MEDS: DOXYcycline CAP(*) 100 MG PO SCH ×2 (08:43→19:58)
[2019-12-31] MEDS: Sertraline* 50 MG TAB PO SCH (08:43)
[2019-12-31] MEDS: Oxybutynin XL TAB* 5 MG PO SCH (08:43)
[2019-12-31] MEDS: Lactobacillus Acidophilus* 1 TAB PO SCH (08:43)
[2019-12-31] MEDS: OLOPATADINE 0.7% BOTH EYES SCH (08:49)
[2019-12-31] MEDS: Nystatin TOP POWDER* 15 GM BTL TOPICAL SCH ×3 (09:58→19:59)
[2019-12-31] MEDS ORDERED: Analgesic BALM* 114 GM TOPICAL PRN (13:22)
--- NOTE | 2019-12-31 13:28 | PN ---
Subjective Date of Service: 12/31/19 Interval History: Reports improving sob.c/o knee pain Family History: Unchanged from Admission Social History: Unchanged from Admission Past Medical History: Unchanged from Admission Objective Active Medications: Acetaminophen (Tylenol Tab*) 650 mg PO Q6H PRN PRN Reason: PAIN - MILD Last Admin: 12/25/19 15:53 Dose: 650 mg Albuterol/Ipratropium (Duoneb (Albuterol 2.5 Mg/Ipratropium 0.5 Mg)) 1 neb INH [id number] AWAKE [facility] Last Admin: 12/31/19 13:08 Dose: 1 neb Divalproex Sodium (Depakote Dr Tab(*)) 250 mg PO TID [facility] Last Admin: 12/31/19 08:43 Dose: 250 mg Doxycycline Hyclate (Vibramycin Cap(*)) 100 mg PO BID [facility] Last Admin: 12/31/19 08:43 Dose: 100 mg Enoxaparin Sodium (Lovenox(*)) 40 mg SUBCUT Q24H [facility] Last Admin: 12/30/19 16:01 Dose: 40 mg Erythromycin (Erythromycin Opth Oint*) 1 applic BOTH EYES BEDTIME [facility] Last Admin: 12/30/19 19:36 Dose: 1 applic Heparin Sodium (Porcine) (Heparin Flush Picc/Ml/Cvc(*)) 1 ml FLUSH 0600,1800 [facility]; Protocol Last Admin: 12/31/19 08:44 Dose: 1 ml Ceftriaxone Sodium 1 gm/ (Sodium Chloride) 50 mls @ 100 mls/hr IVPB Q24H [facility] Last Admin: 12/30/19 16:01 Dose: 100 mls/hr Lactobacillus Rhamnosus (Lactobacillus Acidophilus*) 1 tab PO DAILY [facility] Last Admin: 12/31/19 08:43 Dose: 1 tab Methylprednisolone Sodium Succinate (Solu-Medrol 40 Mg) 40 mg IV DAILY [facility] Multi-Ingredient Liniment/Rub (Freddy Narayan*) 1 applic TOPICAL TID PRN PRN Reason: pain Non-Formulary Medication (Pazeo 0.7% Opthalmic Soln) 1 drop BOTH EYES QAM [facility] Last Admin: 12/31/19 08:49 Dose: Not Given Nystatin (Nystatin Top Powder*) 1 applic TOPICAL TID [facility] Last Admin: 12/31/19 09:58 Dose: 1 applic Oxybutynin Chloride (Ditropan Xl Tab*) 15 mg PO DAILY [facility] Last Admin: 12/31/19 08:43 Dose: 15 mg Sertraline HCl (Zoloft*) 150 mg PO DAILY [facility] Last Admin: 12/31/19 08:43 Dose: 150 mg Vital Signs - 8 hr 12/31/19 12/31/19 12/31/19 07:08 07:43 09:27 Temperature 97.7 F Pulse Rate 87 91 Respiratory 16 20 18 Rate Blood Pressure 158/68 (mmHg) O2 Sat by Pulse 95 94 Oximetry 12/31/19 12/31/19 11:31 13:17 Temperature 97.4 F Pulse Rate 99 96 Respiratory 20 20 Rate Blood Pressure 143/83 (mmHg) O2 Sat by Pulse 91 90 Oximetry Oxygen Devices in Use Now: None, Nasal Cannula Eyes: No Scleral Icterus Ears/Nose/Mouth/Throat: NL Teeth, Lips, Gums, Clear Oropharnyx Neck: NL Appearance and Movements; NL JVP Respiratory: Symmetrical Chest Expansion and Respiratory Effort, Clear to Auscultation Cardiovascular: NL Sounds; No Murmurs; No JVD Abdominal: NL Sounds; No Tenderness; No Distention Extremities: No Edema Neurological: Alert and Oriented x 3 Result Diagrams: 12/29/19 05:22 12/29/19 05:22 Microbiology and Other Data: Microbiology 12/29/19 15:50 Legionella Urinary Antigen - Final Urine Negative Legionella Antigen Streptococcus pneumoniae Ag Screen - Final Negative S. pneumo Antigen Assess/Plan/Problems-Billing Assessment: 64 yo white female with PMHx intellectual delay, cardiomegaly, seizure disorder , overactive bladder, anxiety/depression presents with shortness of breath. - Patient Problems (1) Acute respiratory failure with hypoxia Current Visit: Yes Status: Acute Code(s): J96.01 - ACUTE RESPIRATORY FAILURE WITH HYPOXIA SNOMED Code(s): 99771541 Comment: -CTA negative for central PE -2/2 PNA (2) Community acquired pneumonia Current Visit: Yes Status: Acute Code(s): J18.9 - PNEUMONIA, UNSPECIFIED ORGANISM SNOMED Code(s): 136446077 Comment: -patient presented with several days of URI sxs and worsening cough, found to be hypoxic -CXR and later chest CT concerning for PNA -continue empiric coverage with doxy and ceftriaxone -patient continues to require oxygen, only minimal improvement to 2 L -continue chest physiotherapy, flutter valve, and incentive spirometry -cont scheduled duonebs -Dr Mackenzie consulted -low concern for aspiration PNA given CULTURE ROOM WORKER eval without concerns -Will start solumedrol 40 mg iv once a day to evaluate -Possible COPD -Recheck oximetry on ambulation -Improving -afebrile, no leukocytosis (3) BETTY (acute kidney injury) Current Visit: Yes Status: Acute Code(s): N17.9 - ACUTE KIDNEY FAILURE, UNSPECIFIED SNOMED Code(s): 07841739 Comment: -BETTY at admission, resolved now -likely prerenal in setting of suspected pneumonia (4) Anxiety and depression Current Visit: Yes Status: Acute Code(s): F41.9 - ANXIETY DISORDER, UNSPECIFIED; F32.9 - MAJOR DEPRESSIVE DISORDER, SINGLE EPISODE, UNSPECIFIED SNOMED Code(s): 321429407 Comment: -continue zoloft (5) Frequent PVCs Current Visit: Yes Status: Acute Code(s): I49.3 - VENTRICULAR PREMATURE DEPOLARIZATION SNOMED Code(s): 49628423 Comment: -again with frequent PVCs yesterday 2/2 hypomagnesemia -resolved (6) Intellectual delay Current Visit: Yes Status: Acute Code(s): F81.9 - DEVELOPMENTAL DISORDER OF SCHOLASTIC SKILLS, UNSPECIFIED SNOMED Code(s): 632187772 Comment: -supportive care (7) Overactive bladder Current Visit: Yes Status: Acute Code(s): N32.81 - OVERACTIVE BLADDER SNOMED Code(s): 885126129 Comment: -continue oxybutynin (8) Seizure disorder Current Visit: Yes Status: Acute Code(s): G40.909 - EPILEPSY, UNSP, NOT INTRACTABLE, WITHOUT STATUS EPILEPTICUS SNOMED Code(s): 460148432 Comment: -sister tells me patient has not had seizure in many years -continue depakote (9) DVT prophylaxis Current Visit: Yes Status: Acute Code(s): Z29.9 - ENCOUNTER FOR PROPHYLACTIC MEASURES, UNSPECIFIED SNOMED Code(s): 599427715 Comment: -lovenox Status and Disposition: pending further improvement
[2019-12-31] MEDS ORDERED: methylPREDNISolone SOD 40 MG* 1 ML VIAL IV SCH (14:00)
[2019-12-31] MEDS ORDERED: Albuterol/Ipratropium NEB.SOL* Albuterol 2.5 MG/Ipratropium 0.5 MG 3 ML INH PRN (15:12)
--- NOTE | 2019-12-31 16:11 | CONS ---
PULMONARY CONSULTATION REPORT: DATE OF CONSULT: 12/31/19 CONSULTATION REQUESTED BY: NAYELI Decker REASON FOR CONSULT: Evaluation of hypoxemic respiratory failure and pneumonia. HISTORY OF PRESENT ILLNESS: The patient is a 64-year-old female with intellectual developmental delay, brought in for evaluation of hypoxemia. She was having respiratory issues recently, was noted to have O2 sat around 89% in primary care physician's office and was sent home with prednisone and azithromycin, was rechecked after 24 hours and was noted to have worsening hypoxemia with O2 sat 74% and was referred to the emergency room. The patient had chest x-ray and CT scan of the chest. I have personally reviewed chest x- ray and CT scan of the chest. The patient noted to have airspace opacities predominantly in the upper lung zones. The patient also noted to have atelectasis at the bases, right greater than left. The patient was initiated on treatment for pneumonia. She was also found to be having hypoxemic respiratory failure requiring O2 at 4 L per minute. The patient slowly has been improving. The patient also noted to have thick secretions and inability to cough and was initiated on flutter device and chest vest therapy. The patient with developmental delay and is not able to provide any history. History obtained from her caregiver at bedside and from review of medical records from admission. PAST MEDICAL HISTORY: 1. Hypertension. 2. Epilepsy. 3. Enlarged heart. 4. Overactive bladder. 5. Developmental delay. PAST SURGICAL HISTORY: Hysterectomy. MEDICATIONS ON ADMISSION: 1. Calcium carbonate. 2. Cetirizine. 3. Cranberry. 4. Divalproex. 5. Erythromycin ointment. 6. Nitrofurantoin. 7. Oxybutynin. 8. Pazeo ophthalmic solution. 9. Sertraline. ALLERGIES: AMOXICILLIN. FAMILY HISTORY: Mother and father from unknown reasons. SOCIAL HISTORY: The patient is disabled. No history of smoking, alcohol, or drug abuse. REVIEW OF SYSTEMS: Limited given the patient's inability to provide any history. PHYSICAL EXAM: The patient is sitting in chair, in no apparent distress. Vital Signs: Temperature 97.4, pulse 96 beats per minute, respiratory rate 20 per minute, O2 sat 90% on room air, blood pressure 143/83. HEENT: Pupils equal , reactive to light. Mucous membranes moist. Lungs: Diminished air entry at bases. No crackles or wheezes. Cardiovascular: S1, S2 present. Abdomen: Soft , nontender, nondistended. Bowel sounds present. Extremities: Normal range of motion. Skin: No rash. Neurologic Exam: Able to follow commands. No focal deficits. DIAGNOSTIC STUDIES/LAB DATA: WBC count 8.9, hemoglobin 11.4, hematocrit 33, platelet count 125. Sodium 139, potassium 5, chloride 102, bicarb 34, BUN 40, creatinine 1.15. Influenza A and B negative. Negative legionella and Strep pneumo antigens. Chest x-ray and CT scan of the chest as described above. IMPRESSION AND RECOMMENDATIONS: 64-year-old female admitted with hypoxemia, shortness of breath and cough, was found to have pneumonia. The patient with also atelectasis of the lung resulting in V/Q mismatch and hypoxemic respiratory failure. The patient improved currently, titrated off oxygen. The patient was encouraged to work with incentive spirometer and flutter device. The patient with intermittent cough, not coughing up much phlegm. The patient is overall improving. Continue with the course of antibiotics. Continue with incentive spirometer and flutter device. Thank you for allowing me to participate in the care of the patient. Will follow up with you. [id number]/[facility] #: [id number] RENEA
[2019-12-31] MEDS: cefTRIAXone(*) 1 GM in NS 0.9% 50 ML* 50 ML IVPB SCH (17:12)
[2019-12-31] MEDS: Enoxaparin(*) 40 MG/0.4 ML SYR SUBCUT SCH (17:12)
[2019-12-31] MEDS: Erythromycin OPTH OINT* APPLIC OINT BOTH EYES SCH (19:58)
[2020-01-01 06:21] LABS: ABS Lymphocytes 2.2 10^3/ul (1.0-4.8); ABS Monocytes 0.6 10^3/ul (0-0.8); ABS Neutrophils 8.8 10^3/ul (1.5-7.7); Eosinophil % 0.3 %; Hematocrit 37 % (35-47); Hemoglobin 12.2 g/dL (12.0-16.0); Mean Corpuscular HGB Conc 33 g/dL (31-36); Mean Corpuscular Hemoglobin 30 pg (27-31); Mean Corpuscular Volume 90 fL (80-97); Mean Platelet Volume 10.3 fL (7.4-10.4); Platelet Count 115 10^3/uL (150-450); Red Blood Count 4.11 10^6 /uL (3.70-4.87); Red Cell Distribution Width 14 % (10-15); White Blood Count 11.8 10^3/uL (3.5-10.8)
[2020-01-01 06:44] LABS: BUN/Creatinine Ratio 40.2 (8-20); Calcium 9.3 mg/dL (8.6-10.3); EGFR African American 69.5 (>60); EGFR Non-African American 57.5 (>60)
[2020-01-01 06:48] LABS: Potassium 5.1 mmol/L (3.5-5.0)
[2020-01-01] MEDS: Sertraline* 50 MG TAB PO SCH (08:16)
[2020-01-01] MEDS: Oxybutynin XL TAB* 5 MG PO SCH (08:16)
[2020-01-01] MEDS: DOXYcycline CAP(*) 100 MG PO SCH (08:17)
[2020-01-01] MEDS: Divalproex DR TAB(*) 250 MG PO SCH ×2 (08:17→14:52)
[2020-01-01] MEDS: Lactobacillus Acidophilus* 1 TAB PO SCH (08:17)
[2020-01-01] MEDS: OLOPATADINE 0.7% BOTH EYES SCH (08:55)
[2020-01-01] MEDS: Nystatin TOP POWDER* 15 GM BTL TOPICAL SCH (10:41)
[2020-01-01 12:00] LABS: C Reactive Protein 3.19 mg/L (<8.01)
[2020-01-01 12:55] VITALS: BP 141/64
--- NOTE | 2020-01-01 14:49 | DS ---
CC: Dr. Junie Charles * DISCHARGE SUMMARY: DATE OF ADMISSION: 12/24/19 DATE OF DISCHARGE: 01/01/20 PRIMARY CARE PROVIDER: Dr. Junie Charles. ATTENDING PHYSICIAN: Dr. Cordelia Mireles * (dictated by NAYELI Krause) PRIMARY DIAGNOSES: 1. Community-acquired pneumonia. 2. Acute hypoxic respiratory failure. 3. Acute kidney injury. SECONDARY DIAGNOSES: 1. Hypertension. 2. Epilepsy. 3. Overactive bladder. 4. Cardiomegaly. DISCHARGE MEDICATIONS: Home medications: 1. Calcium carbonate 600 mg p.o. b.i.d. 2. Cetirizine 10 mg p.o. daily. 3. Cranberry 400 mg p.o. b.i.d. 4. Divalproex 250 mg p.o. t.i.d. 5. Erythromycin ophthalmic ointment 1 application to both eyes at bedtime. 6. Oxybutynin XL 15 mg p.o. daily. 7. Pazeo 0.7% ophthalmic solution 1 drop to both eyes daily. 8. Sertraline 150 mg p.o. daily. STUDIES WHILE IN THE HOSPITAL: 1. Chest x-ray, impression: Perihilar predominant airspace opacification with cardiomegaly. This is most suggestive of mild pulmonary edema. 2. CTA of the chest, impression: Severely motion degraded exam. No central pulmonary embolism identified. Mild interstitial pulmonary edema. Coronary artery disease. 3. Transthoracic echocardiogram, summary: LV cavity size below normal. Wall thickness mildly to moderately increased, systolic function hyperdynamic, estimated EF 70% to 75%. No diagnostic regional wall motion abnormality identified. This possibility cannot be completely excluded on basis of study. RV systolic function low normal, trace MR, no evidence of , trace TR. Pulmonary artery systolic pressure cannot be accurately estimated. 4. CT chest without, impression: Limited study. Linear atelectasis of the lung bases bilaterally. 5. Chest x-ray, impression: Hyperinflation consistent with COPD. No active cardiopulmonary disease. CONSULTATIONS WHILE IN THE HOSPITAL: Pulmonology. The patient found to have pneumonia, also with atelectasis of lung resulting in V/Q mismatch and hypoxemic respiratory failure, improved currently, titrated off oxygen. The patient encouraged to work with incentive spirometry/flutter device. The patient with intermittent cough, not coughing up much phlegm. Overall improving. Continue course of antibiotics. Continue incentive spirometer and flutter device. HISTORY OF PRESENT ILLNESS/HOSPITAL COURSE: Ms. Garcia is a 64-year-old female with a past medical history of hypertension, epilepsy, who presented to the ER on 12/24/19 with reports of hypoxia. She had seen her primary care provider 24 hours prior, was sent home on prednisone and azithromycin. At 24- hour recheck the patient was continually hypoxic with sats in the 70's and was referred to the emergency department. A chest x-ray revealed some airspace opacification suggestive of pulmonary edema. Therefore, a MELE was ordered, which revealed hyperdynamic ejection fraction of 70% to 75% with grade 1 diastolic dysfunction. CTA of the chest was obtained for shortness of breath and mild tachycardia, which she had throughout her stay. Although the imaging was motion degraded, there were no central pulmonary emboli noted with findings of mild interstitial pulmonary edema. At admission, the patient had a leukocytosis of 11.1 and she complained of a productive cough. She was afebrile. She was started on ceftriaxone and doxycycline for treatment of presumed community-acquired pneumonia. She continued to require oxygen throughout her stay, but was eventually weaned off, and at discharge had been without supplemental oxygen for over 24 hours. She is also ambulating without difficulty or hypoxia. During her stay, she received 8 days of treatment with doxycycline and ceftriaxone. At discharge, she reports she is feeling well and is eager to go home with her sister, Yudith. The patient's CRP was mildly elevated at 12 upon admission. At discharge, her CRP is 3.19. She does have a mild leukocytosis which has recurred and is 11.8 at discharge, but this is likely due to a dose of steroids used prior to discharge. Recommendations have been made to recheck CBC and BMP prior to primary care provider appointment and she will follow up on the results with her primary care provider. The patient was also noted to have an acute kidney injury during her stay. This was suspected to be due to her pneumonia infection and at discharge her kidney function is almost back to normal at 0.97. She was encouraged to continue to consume fluids. The patient was noted to have some runs of PVCs on telemetry at the beginning of her stay. This was suspected to be due to hypomagnesemia and PVCs resolved after repletion of magnesium. PHYSICAL EXAMINATION: Vital Signs: Temperature 97.5 temporal, heart rate 90, respiratory rate 16, oxygen saturation 93% on room air, blood pressure 133/66. General: Ms. Garcia is a well-developed, well-nourished, obese, 64-year-old white woman, who is sitting up in her chair. She appears mildly kyphotic, is breathing comfortably on room air. She appears to be in no acute distress. No coughing noted during her interview. She is pleasant and cooperative. HEENT: PERRL. Hearing is grossly intact. Oral mucous membranes are moist. There are no lesions. The pharynx is clear. The tongue is at midline. Palate elevates symmetrically. Cardiovascular: Regular rate and rhythm with S1, S2 present. No murmurs, rubs, clicks, or gallops. There is no JVD or peripheral edema. Pulmonary: Mildly diminished breath sounds throughout, although the patient is unable to follow instructions for deep breathing. Clear breath sounds without rhonchi, wheeze, or rales noted. Abdomen: Bowel sounds in all quadrants. Soft , nontender to palpation. Neuro: The patient is awake. She is alert and oriented x3. She has difficulty following instructions for assessment of cranial nerves, but there appears to be no focal abnormality. She has a steady gait and walks without difficulty. DISCHARGE PLAN: Ms. Garcia will be discharged to home. CONDITION: Good. DIET: Heart healthy. ACTIVITY: 1. As tolerated. 2. Encourage use of incentive spirometer and flutter valve. MEDICATIONS: No changes. EDUCATION: 1. Repeat blood work in 3 to 5 days and prior to appointment with primary care provider. 2. Follow up with primary care provider in 4 to 7 days. 3. Return to the ER or nearest hospital if you experience any return or worsening of symptoms, chest pain or discomfort, shortness of breath, high fevers, chills, night sweats, dizziness, lightheadedness, loss of consciousness , or any other worrisome signs or symptoms. This is a summarized report of a complex medical history and hospital stay. For further details, please see the entire medical record. TIME SPENT: Approximately 60 minutes were spent on this discharge, greater than half that time was spent [id number] with the patient discussing discharge plans and instructions. Her sister, Yudith, was also updated on discharge plans and instructions. NAYELI BAIRES [id number]/[facility] #: [id number] [facility]ENTERDoming[facility]
== END 2020-01-01 14:35 | disposition home or self-care (01) | DRG 193 ==
LOC: ED 11:58 → MED 15:08
PROVIDERS: ADMIT Internal Medicine; ATTEND Internal Medicine
DX: J18.9 Pneumonia, unspecified organism (principal); J96.01 Acute respiratory failure with hypoxia; I50.30 Unspecified diastolic (congestive) heart failure; N17.9 Acute kidney failure, unspecified; J98.11 Atelectasis; I45.2 Bifascicular block; J44.9 Chronic obstructive pulmonary disease, unspecified; I11.0 Hypertensive heart disease with heart failure; G40.909 Epilepsy, unspecified, not intractable, without status epilepticus; N32.81 Overactive bladder; I49.3 Ventricular premature depolarization; F41.9 Anxiety disorder, unspecified; F32.9 Major depressive disorder, single episode, unspecified; F81.9 Developmental disorder of scholastic skills, unspecified; E83.42 Hypomagnesemia; Z79.899 Other long term (current) drug therapy; Z88.1 Allergy status to other antibiotic agents
CPT/HCPCS: 36415; 71046; 71250; 71275; 80048; 80053; 80164; 83735; 83880; 84484; 85025; 86140; 87899; 93005; 93306; 94640; 94667; 94668; 99284; A9270-GY; C8929; J0696; J1650; J1940; J2920; J3475; Q9967